=== PATIENT | female | born 1970 | race Caucasian/White ===

== ENCOUNTER 2016-04-04 14:51 | Emergency (ER) | payer OTHER ==
[~2016-04-04] VITALS: Ht 167.6 cm; Wt 87.0 kg
[~2016-04-04 14:51] MED LIST: MORP1CAP PO
[2016-04-04 14:54] VITALS: Ht 167.6 cm; Wt 87.0 kg
[2016-04-04] MEDS ORDERED: XYLOCAINE 1%/SOD BICARB 20 ML VIAL INFIL ONE (15:30)
--- NOTE | 2016-04-04 15:31 | EMERGENCY ROOM VISIT NOTE ---
ED Visit Note First contact with patient: 15:19 CHIEF COMPLAINT: Infection of the right buttock HISTORY OF PRESENT ILLNESS: This 45-year-old female patient presents to the emergency department ambulatory after they noticed a hard, red, tender area to the right buttock 3 days ago. It is slowly getting larger, more painful and tender. No fever, chills, or loss of appetite. There has been no drainage from the area. There was no injury to the area preceding the infection. They rate the pain as sharp and 9/10. Tetanus shot is up to date. They have tried opening the area without success. The patient is not diabetic. The patient has a history of subcutaneous abscesses, hidradenitis suppurativa. REVIEW OF SYSTEMS: A 6 system review of systems was completed with positives and pertinent negatives listed in the HPI. ALLERGIES: Prevacid, latex, penicillin, promethazine MEDICATIONS: See nursing notes PMH: Chronic back pain SOCIAL HISTORY: The patient is a smoker. She lives locally PHYSICAL EXAM: Vital Signs: Reviewed Nurse's notes, vital signs stable. GENERAL : This is a 45-year-old female, no acute distress, non toxic in appearance, well -developed well-nourished. SKIN: There is an erythematous indurated area to the buttock which measures about 3 cm in diameter. It is fluctuant but there is no pointing or drainage. There is a zone of inflammation around it but no lymphangitis. Capillary refill less than 2 seconds. MUSCULOSKELETAL: There is no limitation of the range of motion of the lower extremities. EMERGENCY DEPARTMENT COURSE: I examined the patient. After saline and Betadine cleansing and 4 mL of 1% buffered lidocaine anesthesia, the abscess was incised with a number 11 scalpel blade. A large amount of purulent material was released with more expressed by pressure. A swab was obtained for culture. The abscess cavity was further probed with a needle rolloff truck driver and the deep pocket expressed. The abscess cavity was then copiously irrigated with sterile saline under pressure. The area was then packed with bacitracin soaked packing. The area was cleaned with sterile saline and dressed with bacitracin and a bulky bandage. The patient tolerated the procedure well. The patient was discharged home in stable condition. DIAGNOSIS: Abscess of the buttock DISCHARGE INSTRUCTIONS & TREATMENT: Return in 48 hours for a wound recheck and packing removal. Remove the outer dressing if it becomes soiled or wet. Ibuprofen 600 mg every 6-8 hours for moderate pain. Continue your pain medication as prescribed, as needed. Bactrim and Keflex as prescribed, until finished. Return sooner with any worsening redness, swelling, fevers. Problem List Medical Problems: (1) Chronic low back pain Status: Chronic (2) Fecal impaction Status: Resolved (3) Fecal impaction Status: Resolved (4) Migraine Status: Chronic Surgical Problems: (1) H/O: hysterectomy Status: Resolved (2) Hx of cholecystectomy Status: Resolved (3) Hx of salpingo-oophorectomy, bilateral Status: Resolved (4) S/P lumbar fusion Status: Chronic Current/Historical Medications Scheduled Cephalexin Monohydrate (Keflex), 500 MG PO QID Docusate Sodium (Docqlace), 100 MG PO BID Duloxetine HCl (Duloxetine HCl), 60 MG PO HS Gabapentin (Gabapentin), 800 MG PO TID Morphine Sulfate (Morphine Sulfate Er), 30 MG PO TID Sulfa/Trimethoprim (Bactrim Ds 800MG/160MG), 1 TAB PO BID Zolpidem Tartrate (Zolpidem Tartrate), 10 MG PO HS Scheduled PRN Oxymorphone Hcl (Oxymorphone Hydrochloride), 10 MG PO DAILY PRN for Pain Allergies Coded Allergies: BEE STING (Unverified Allergy, Severe, ANAPHYLAXIS, 02/07/15) Lansoprazole (Verified Allergy, Severe, sob, 02/07/15) Latex (Verified Allergy, Severe, sob, 02/07/15) Promethazine (Verified Allergy, Unknown, Neuro symptoms, 02/07/15) Reported by PT Uncoded Allergies: PENICILLIN (Allergy, Severe, sob, 05/05/12) Vital Signs Date Time Temp Pulse Resp B/P Pulse Ox O2 Delivery O2 Flow Rate FiO2 04/04/16 16:19 36.9 93 16 137/83 97 04/04/16 14:54 36.9 93 16 137/83 97 Departure Information Impression Primary Impression: Abscess Dispostion Home / Self-Care Condition GOOD Prescriptions Cephalexin Monohydrate (Keflex) 500 Mg Cap 500 MG PO QID for 7 Days, #28 CAP Prov: Patricia Giordano PA-C 04/04/16 Sulfa/Trimethoprim (Bactrim Ds 800MG/160MG) Tab 1 TAB PO BID for 7 Days, #14 TAB Prov: Patricia Giordano PA-C 04/04/16 Referrals No Doctor, Assigned (PCP) Patient Instructions ED Abscess IandD, My [facility] Additional Instructions Return in 48 hours for a wound recheck and packing removal. Remove the outer dressing if it becomes soiled or wet. Ibuprofen 600 mg every 6-8 hours for moderate pain. Continue your pain medication as prescribed, as needed. Bactrim and Keflex as prescribed, until finished. Return sooner with any worsening redness, swelling, fevers.
[2016-04-04] MEDS ORDERED: SULF800T23 PO (16:09)
[2016-04-04] MEDS ORDERED: CEPH500C PO (16:09)
[2016-04-04 16:19] VITALS: BP 137/83; PULSE 93; TEMP 36.9; O2SAT 97
[2016-10-09] MEDS ORDERED: PRM625 PO (07:19)
[2016-10-09] MEDS ORDERED: LEVA45AE (07:19)
[2016-10-09] MEDS ORDERED: SALI0.653 (07:19)
[2016-10-09] MEDS ORDERED: FLVHFA110 INH (07:19)
[2016-10-09] MEDS ORDERED: LEVO1TAB35 PO (07:19)
== END 2016-04-04 16:21 | disposition home or self-care (01) ==
LOC: C.EDB 14:54 → C.EDD 16:21
DX: L02.31 Cutaneous abscess of buttock (principal); F17.200 Nicotine dependence, unspecified, uncomplicated; G89.29 Other chronic pain; M54.5 Low back pain; Z90.710 Acquired absence of both cervix and uterus

== ENCOUNTER 2016-04-07 12:35 | Emergency (ER) | payer OTHER ==
[~2016-04-07] VITALS: Ht 167.6 cm; Wt 84.6 kg
[~2016-04-07 12:35] MED LIST changes: +CEPH500C PO; -MORP1CAP PO; +SULF800T23 PO
[2016-04-07 12:53] VITALS: TEMP 36.9; Ht 167.6 cm; Wt 84.6 kg
--- NOTE | 2016-04-07 13:34 | EMERGENCY ROOM VISIT NOTE ---
ED Visit Note First contact with patient: 13:19 CHIEF COMPLAINT: Packing removal HISTORY OF PRESENT ILLNESS: This 45-year-old female patient presents to the emergency department ambulatory for packing removal of an abscess of her right buttock. She had incision and drainage 3 days ago. Previous care outlined has been followed without difficulty. The patient is taking both the Bactrim and Keflex as prescribed, but states that the Keflex is upsetting her stomach. REVIEW OF SYSTEMS: A 6 system review of systems was completed with positives and pertinent negatives listed in the HPI. ALLERGIES: Bee sting, lansoprazole, latex, penicillin, promethazine MEDICATIONS: See med list PMH: Unchanged from previous visit. PHYSICAL EXAM: Vital Signs reviewed, see Nurse's notes. Patient is afebrile, vital signs stable. GENERAL: This is a 45-year-old female, awake, alert, well appearing, no acute distress SKIN: Packing is in place in the right buttock. There is no continued purulent discharge. The redness has decreased. The wound is healing well. NEURO: No sensory or motor deficits noted. EMERGENCY DEPARTMENT COURSE AND DECISION MAKING: I examined the patient. The packing was removed from the abscess of the right buttock. The wound is healing well. There is a large pocket, and a small amount of packing was replaced in the abscess pocket to be removed by the patient or her at home in 2 days. I did review culture results, which showed coag negative Staphylococcus. The patient was instructed that she may discontinue the Keflex, but should continue the Bactrim for the entire course. Discharge instructions reviewed. Discharged in stable condition. DIAGNOSIS: Packing removal Problem List Medical Problems: (1) Chronic low back pain Status: Chronic (2) Fecal impaction Status: Resolved (3) Fecal impaction Status: Resolved (4) Migraine Status: Chronic Surgical Problems: (1) H/O: hysterectomy Status: Resolved (2) Hx of cholecystectomy Status: Resolved (3) Hx of salpingo-oophorectomy, bilateral Status: Resolved (4) S/P lumbar fusion Status: Chronic Current/Historical Medications Scheduled Cephalexin Monohydrate (Keflex), 500 MG PO QID Docusate Sodium (Docqlace), 100 MG PO BID Duloxetine HCl (Duloxetine HCl), 60 MG PO HS Gabapentin (Gabapentin), 800 MG PO TID Morphine Sulfate (Morphine Sulfate Er), 30 MG PO TID Sulfa/Trimethoprim (Bactrim Ds 800MG/160MG), 1 TAB PO BID Zolpidem Tartrate (Zolpidem Tartrate), 10 MG PO HS Scheduled PRN Oxymorphone Hcl (Oxymorphone Hydrochloride), 10 MG PO DAILY PRN for Pain Allergies Coded Allergies: BEE STING (Unverified Allergy, Severe, ANAPHYLAXIS, 04/07/16) Lansoprazole (Verified Allergy, Severe, sob, 04/07/16) Latex (Verified Allergy, Severe, sob, 04/07/16) Promethazine (Verified Allergy, Unknown, Neuro symptoms, 04/07/16) Reported by PT Uncoded Allergies: PENICILLIN (Allergy, Severe, sob, 05/05/12) Vital Signs Date Time Temp Pulse Resp B/P Pulse Ox O2 Delivery O2 Flow Rate FiO2 04/07/16 13:38 86 20 109/80 97 04/07/16 12:53 36.9 85 20 129/78 96 Room Air Departure Information Impression Primary Impression: Encounter for wound re-check Dispostion Home / Self-Care Condition GOOD Referrals No Doctor, Assigned (PCP) Patient Instructions My [facility] Additional Instructions Remove the remaining packing in 2 days. Continue the Bactrim. You may stop the Keflex. Continue to follow the discharge instructions given to you on your last visit. Return to the emergency department with any signs of worsening infection, fevers or any new/concerning symptoms.
[2016-04-07 13:38] VITALS: BP 109/80; PULSE 86; O2SAT 97
[2016-04-07] MEDS ORDERED: DOCU100C22 PO (14:21)
[2016-04-07] MEDS ORDERED: MORP1CAP96 PO (18:42)
[2016-04-07] MEDS ORDERED: ZOLP10TA6 PO (20:32)
[2016-04-07] MEDS ORDERED: NRN800 PO (20:32)
[2016-04-07] MEDS ORDERED: CYM60 PO (20:32)
[2016-04-07] MEDS ORDERED: OXYMTAB2 PO (20:32)
[2016-10-09] MEDS ORDERED: PRM625 PO (07:19)
[2016-10-09] MEDS ORDERED: SALI0.653 (07:19)
[2016-10-09] MEDS ORDERED: LEVA45AE (07:19)
[2016-10-09] MEDS ORDERED: FLVHFA110 INH (07:19)
[2016-10-09] MEDS ORDERED: LEVO1TAB35 PO (07:19)
== END 2016-04-07 13:51 | disposition home or self-care (01) ==
LOC: C.EDB 12:36 → C.EDD 13:51
DX: L02.31 Cutaneous abscess of buttock (principal); Z48.00 Encounter for change or removal of nonsurgical wound dressing; M54.5 Low back pain; G89.29 Other chronic pain; G43.909 Migraine, unspecified, not intractable, without status migrainosus; Z79.899 Other long term (current) drug therapy

== ENCOUNTER 2016-05-11 11:08 | Inpatient (IN) | payer OTHER ==
[~2016-05-11] VITALS: Ht 167.6 cm; Wt 88.3 kg
[~2016-05-11 11:08] MED LIST changes: -CEPH500C PO; +CYM60 PO; +DOCU100C22 PO; +MORP1CAP96 PO; +NRN800 PO; +OXYMTAB2 PO; -SULF800T23 PO; +ZOLP10TA6 PO
[2016-05-11] MEDS ORDERED: ALBUT/IPRATROP 3MG/0.5MG NEB 3 ML VIAL INH STA (11:46)
[2016-05-11 12:04] LABS: HEMATOCRIT 42.2 % (37-47); MEAN CELL VOLUME 87.4 fL (80-100); MEAN CORPUSCULAR HEMOGLOBIN 29.4 pg (25-34); MEAN CORPUSCULAR HGB CONC 33.6 g/dl (32-36); MEAN PLATELET VOLUME 10.6 fL (7.4-10.4); PLATELET COUNT 288 K/uL (130-400); RED BLOOD COUNT 4.83 M/uL (4.2-5.4); WHITE BLOOD COUNT 9.14 K/uL (4.8-10.8)
[2016-05-11 12:16] LABS: PARTIAL THROMBOPLASTIN RATIO 1.2; PROTHROMBIN TIME (PATIENT) 10.5 SECONDS (9.0-12.0)
[2016-05-11 12:21] LABS: BUN/CREATININE RATIO 7.1 (10-20); CALCIUM 8.7 mg/dl (8.5-10.1); CREATININE 0.72 mg/dl (0.60-1.20); POTASSIUM 3.8 mmol/L (3.5-5.1)
[2016-05-11 12:23] LABS: ALB/GLOB RATIO 0.9 (0.9-2)
[2016-05-11] MEDS ORDERED: METHYLPREDNISOLONE 125 MG VIAL IV STA (12:30)
[2016-05-11] MEDS ORDERED: SODIUM CHLORIDE 0.9% 1000ML 1,000 ML IV STA (12:30)
[2016-05-11] MEDS ORDERED: HYDROCODONE/HOMATROPINE SYRUP 5MG/1.5MG 5ML UDP PO STA (12:30)
--- NOTE | 2016-05-11 12:35 | DIAGNOSTIC IMAGING REPORT ---
CHEST ONE VIEW PORTABLE CLINICAL HISTORY: short of breath/cough dyspnea COMPARISON STUDY: 01/17/2016 FINDINGS: The bones soft tissues and hemidiaphragms are normal. The cardiomediastinal silhouette is normal. The lungs are clear. The pulmonary vasculature is normal. IMPRESSION: Negative chest. Electronically signed by: Ty Oleary M.D. 05/11/2016 12:34 PM Dictated Date/Time: 05/11/2016 12:33 PM
[2016-05-11 12:40] LABS: BASO % 0.2 %; BASO ABS # 0.02 K/uL (0-0.2); COMPLETE YES; EOS % 1.6 %; IG% 0.2 %; LYMPH % 22.1 %; LYMPH ABS # 2.02 K/uL (1.2-3.4); MONO % 5.3 %; NEUT % 70.6 %
[2016-05-11] MEDS ORDERED: DEXT30TA7 PO (12:42)
[2016-05-11] MEDS ORDERED: DiphenhydrAMINE HCL 50 MG/ML VIAL IV STA (13:08)
[2016-05-11] MEDS ORDERED: LEVAQUIN 750MG / 150ML D5W IV STA (14:19)
[2016-05-11 15:01] LABS: VEN BLD GAS O2 SATURATION 86.2 %; VEN BLOOD GAS BASE EXCESS 1.9 mmol/L
--- NOTE | 2016-05-11 16:36 | EMERGENCY ROOM VISIT NOTE ---
History Report prepared by Anrdés: Lilian Iqbal Under the Supervision of: Dr. Isidoro Griggs M.D. First contact with patient: 12:20 Chief Complaint: CHEST PAIN Stated Complaint: LT ARM/LEG NUMB, CP L SIDE, SOB, COUGH Nursing Triage Summary: pt c/o chest pain and left arm and leg numbness. sob. denies any n/v/ History of Present Illness The patient is a 45 year old female who presents to the Emergency Room with complaints of worsening chest pain with onset onset one day ago. The patient states that she has been having episodes of sharp chest pain. She feels that the pain shoots up into her neck and jaw and down into her left arm. The patient states that the left side of her body then goes completely numb. The patient states she feels completely exhausted after the episodes of chest pain. The patient has had a productive cough, chills, and a scratchy throat, which she states is due to coughing. She denies pain in her calves, getting a flu shot this year. The patient notes that she smokes. Source of History: patient Onset: one day ago Position: chest Quality: sharp, other (chest pain) Timing: worsening Associated Symptoms: + chills, + cough, + sorethroat Note: She denies pain in her calves. She feels that the pain shoots up into her neck and jaw and down into her left arm. The patient states that the left side of her body then goes completely numb. The patient states she feels completely exhausted after the episodes of chest pain. Review of Systems See HPI for pertinent positives & negatives. A total of 10 systems reviewed and were otherwise negative. Past Medical & Surgical Medical Problems: (1) Chronic low back pain (2) Fecal impaction (3) Fecal impaction (4) Migraine Surgical Problems: (1) H/O: hysterectomy (2) Hx of cholecystectomy (3) Hx of salpingo-oophorectomy, bilateral (4) S/P lumbar fusion Family History Cancer Diabetes mellitus Gallbladder disease Heart disease Hypertension Lung disease Social History Smoking Status: Current Every Day Smoker Marital Status: in relationship Housing Status: lives with family Occupation Status: unemployed Current/Historical Medications Scheduled Docusate Sodium (Docqlace), 100 MG PO BID Duloxetine HCl (Duloxetine HCl), 60 MG PO HS Gabapentin (Gabapentin), 800 MG PO TID Morphine Sulfate (Morphine Sulfate Er), 30 MG PO TID Zolpidem Tartrate (Zolpidem Tartrate), 10 MG PO HS Scheduled PRN Dextromethorphan-Guaifenesin (Mucinex Dm), 1 TAB PO Q12 PRN for Cough Oxymorphone Hcl (Oxymorphone Hydrochloride), 10 MG PO DAILY PRN for Pain Allergies Coded Allergies: BEE STING (Unverified Allergy, Severe, ANAPHYLAXIS, 04/07/16) Lansoprazole (Verified Allergy, Severe, sob, 04/07/16) Latex (Verified Allergy, Severe, sob, 05/11/16) CAUSES BLISTERS NOT SOB Penicillin G (Unverified Allergy, Severe, ANAPHYLAXIS, 05/11/16) Promethazine (Verified Allergy, Unknown, Neuro symptoms, 04/07/16) Reported by PT Physical Exam Vital Signs Date Time Temp Pulse Resp B/P Pulse Ox O2 Delivery O2 Flow Rate FiO2 05/11/16 17:00 68 20 125/79 93 Room Air 05/11/16 16:45 76 20 107/77 92 Nasal Cannula 2.0 05/11/16 16:30 74 20 113/78 92 Nasal Cannula 2.0 05/11/16 16:15 72 14 104/70 93 Nasal Cannula 2.0 05/11/16 16:00 76 20 111/80 92 Nasal Cannula 2.0 05/11/16 15:45 73 20 128/76 92 05/11/16 15:42 76 20 110/71 93 Nasal Cannula 2.0 05/11/16 14:39 74 14 117/67 94 Room Air 05/11/16 13:52 85 18 116/67 92 Nasal Cannula 2.0 05/11/16 13:16 Nasal Cannula 2.0 05/11/16 13:15 84 18 88 Room Air 05/11/16 12:54 92 18 110/78 91 Room Air 05/11/16 11:58 88 20 104/71 97 Room Air 05/11/16 11:55 93 Room Air 05/11/16 11:53 91 05/11/16 11:33 99 Room Air 05/11/16 11:20 37.4 99 18 134/78 93 Room Air Physical Exam GENERAL: Patient is ill appearing and in mild distress. HEENT: No acute trauma, normocephalic atraumatic, mucous membranes moist, no nasal congestion, no scleral icterus. NECK: No stridor, no adenopathy, no meningismus, trachea is midline. LUNGS: No dyspnea. Diffuse crackles throughout the left lobes and diffuse wheezing, junky productive cough. HEART: Regular rate and rhythm. No murmurs, rubs, gallops appreciated. ABDOMEN: Soft, nontender, bowel sounds positive, no masses appreciated, no peritonitis. BACK: No midline tenderness, no CVA tenderness EXTREMITIES: Normal motion all extremities, no cyanosis, no edema. NEUROLOGIC: Alert and oriented, no acute motor or sensory deficits, no focal weakness, cranial nerves grossly intact. SKIN: No rash, no jaundice, no diaphoresis. Medical Decision & Procedures ER Provider Diagnostic Interpretation: X ray results are stated below per my interpretation and the radiologist's interpretation. CT results as stated below per interpretation by me and the radiologist: CHEST ONE VIEW PORTABLE CLINICAL HISTORY: short of breath/cough dyspnea COMPARISON STUDY: 01/17/2016 FINDINGS: The bones soft tissues and hemidiaphragms are normal. The cardiomediastinal silhouette is normal. The lungs are clear. The pulmonary vasculature is normal. IMPRESSION: Negative chest. Electronically signed by: Ty Oleary M.D. 05/11/2016 12:34 PM Dictated Date/Time: 05/11/2016 12:33 PM CHEST CTA for PULMONARY ARTERIES CT DOSE: 403.65 mGy.cm HISTORY: Chest pain dyspnea TECHNIQUE: Multiaxial CT images of the chest were performed following the intravenous administration of contrast to evaluate the pulmonary arteries. Maximal intensity projection images were also obtained. COMPARISON STUDY: 01/17/2016 FINDINGS: Thoracic aorta is normal in course and caliber. Pulmonary arterial vasculature enhances appropriately. There are no significant filling defects. There are several mediastinal and/or hilar nodes which are unchanged from the prior exam. lung parenchyma shows no evidence for focal infiltrate. Micronodularity previously described is stable to slightly diminished. There is no focal infiltrate. IMPRESSION: 1. Study is negative for pulmonary embolus. 2. Lungs are considered clear. 3. Micronodularity previously described is stable to slightly diminished. 4. Several indeterminate hilar and mediastinal nodes unchanged from the prior exam. Electronically signed by: Ty Oleary M.D. 05/11/2016 6:05 PM Dictated Date/Time: 05/11/2016 6:01 PM Laboratory Results 05/11/16 11:40 Red Blood Count 4.83, Mean Corpuscular Volume 87.4, Mean Corpuscular Hemoglobin 29.4, Mean Corpuscular Hemoglobin Concent 33.6, Mean Platelet Volume 10.6, Neutrophils (%) (Auto) 70.6, Lymphocytes (%) (Auto) 22.1, Monocytes (%) (Auto) 5.3, Eosinophils (%) (Auto) 1.6, Basophils (%) (Auto) 0.2, Neutrophils # (Auto) 6.45, Lymphocytes # (Auto) 2.02, Monocytes # (Auto) 0.48, Eosinophils # (Auto) 0.15, Basophils # (Auto) 0.02 05/11/16 11:40 Test 05/11/16 11:37 05/11/16 11:40 05/11/16 11:51 05/11/16 14:50 Influenza Type A Antigen Neg for Influ A (NEG) Influenza Type B Antigen Neg for Influ B (NEG) White Blood Count 9.14 K/uL (4.8-10.8) Red Blood Count 4.83 M/uL (4.2-5.4) Hemoglobin 14.2 g/dL (12.0-16.0) Hematocrit 42.2 % (37-47) Mean Corpuscular Volume 87.4 fL (80-100) Mean Corpuscular Hemoglobin 29.4 pg (25-34) Mean Corpuscular Hemoglobin Concent 33.6 g/dl (32-36) Platelet Count 288 K/uL (130-400) Mean Platelet Volume 10.6 fL (7.4-10.4) Neutrophils (%) (Auto) 70.6 % Lymphocytes (%) (Auto) 22.1 % Monocytes (%) (Auto) 5.3 % Eosinophils (%) (Auto) 1.6 % Basophils (%) (Auto) 0.2 % Neutrophils # (Auto) 6.45 K/uL (1.4-6.5) Lymphocytes # (Auto) 2.02 K/uL (1.2-3.4) Monocytes # (Auto) 0.48 K/uL (0.11-0.59) Eosinophils # (Auto) 0.15 K/uL (0-0.5) Basophils # (Auto) 0.02 K/uL (0-0.2) RDW Standard Deviation 45.0 fL (36.4-46.3) RDW Coefficient of Variation 14.0 % (11.5-14.5) Immature Granulocyte % (Auto) 0.2 % Immature Granulocyte # (Auto) 0.02 K/uL (0.00-0.02) Red Blood Cell Morphology Unremarkable Prothrombin Time 10.5 SECONDS (9.0-12.0) Prothromb Time International Ratio 1.0 (0.9-1.1) Activated Partial Thromboplast Time 30.3 SECONDS (21.0-31.0) Partial Thromboplastin Ratio 1.2 Anion Gap 8.0 mmol/L (3-11) Est Creatinine Clear Calc Drug Dose 112.7 ml/min Estimated GFR () 118.9 Estimated GFR (Non- 102.6 BUN/Creatinine Ratio 7.1 (10-20) Calcium Level 8.7 mg/dl (8.5-10.1) Total Bilirubin 0.3 mg/dl (0.2-1) Aspartate Amino Transf (AST/SGOT) 24 U/L (15-37) Alanine Aminotransferase (ALT/SGPT) 44 U/L (12-78) Alkaline Phosphatase 97 U/L (45-117) Total Protein 7.5 gm/dl (6.4-8.2) Albumin 3.6 gm/dl (3.4-5.0) Globulin 3.9 gm/dl (2.5-4.0) Albumin/Globulin Ratio 0.9 (0.9-2) Bedside Troponin I 0.000 ng/ml (0-0.045) Venous Blood pH 7.39 (7.36-7.41) Venous Blood Partial Pressure CO2 47 mmHg (38.0-50.0) Venous Blood Partial Pressure O2 53 mmHg Venous Blood HCO3 28 mmol/L Venous Blood Oxygen Saturation 86.2 % Venous Blood Base Excess 1.9 mmol/L Test 05/11/16 14:53 05/11/16 15:24 Bedside Lactic Acid Venous 1.53 mmol/L (0.90-1.70) Bedside Glucose 117 mg/dl (70-90) Laboratory results as reviewed by me. Medications Administered Medications (Trade) Dose Ordered Sig/Zulma Route Start Time Stop Time Status Last Admin Dose Admin Albuterol/ Ipratropium (Duoneb) 3 ml NOW STAT INH 05/11/16 11:46 05/11/16 11:49 DC 05/11/16 11:53 3 ML Methylprednisolone Sodium Succinate 125 mg 125 mg NOW STAT IV 05/11/16 12:30 05/11/16 12:31 DC 05/11/16 12:49 125 MG Sodium Chloride (Nss 1000ml) 1,000 ml @ 999 mls/hr Q1H1M STAT IV 05/11/16 12:30 05/11/16 13:30 DC 05/11/16 12:48 999 MLS/HR Hydrocodone Bit/ Homatropine Methylb (Hycodan Syrup) 5 ml NOW STAT PO 05/11/16 12:30 05/11/16 12:31 DC 05/11/16 12:48 5 ML Diphenhydramine HCl (Benadryl Inj) 50 mg NOW STAT IV 05/11/16 13:08 05/11/16 13:09 DC 05/11/16 13:14 50 MG Levofloxacin (Levaquin / D5W) 750 mg NOW STAT IV 05/11/16 14:19 05/11/16 14:20 DC 05/11/16 15:53 750 MG ECG Indication: SOB/dyspnea, tachycardia Rate (beats per minute): 96 Rhythm: normal sinus Findings: no acute ischemic change, no ectopy Change: EKG2: Normal sinus rhythm, at a rate of 75, no ectopy, no acute ischemic changes. ED Course 1221: The patient was evaluated in room A12. A complete history and physical exam was performed. 1146: Duoneb 3 ml INH 1230: Hycodan Syrup 5 ml PO, Sodium Chloride 1000 ml @ 999 mls/hr IV, Solu- Medrol 125 mg IV 1308: Benadryl 50 mg IV 0110: I reevaluated the patient after she had an allergic reaction to the Hycodan, for this she was given Benadryl. 1339: I reevaluated the patient; she is hypoxic. 1419: Levaquin 750 mg IV 1520: I reevaluated the patient; she is acutely ill appearing, diaphoretic and hypoxic. She is having back pain where she usually has back pain. 1432: I discussed the case with Dr. Bernal ([facility]); he will further evaluate the patient and has requested that I order a CTA of the patient's chest. Medical Decision Differential: Infectious, Reactive Airway Disease, Pneumonia, Pneumothorax, COPD , CHF, ACS, Pulmonary Embolism, MSK, GI, Dissection, amongst other etiologies entertained. 45 yr old female smoker with chronic pain issues arrives with shortness of breath, cough, and chills. She looks unwell and lung sounds quite poor, especially LLL. Initially sats and vitals looked OK. No clear infiltrate and labs not very remarkable. Given nebs, steroids and hycodan for cough. Developed allergic reaction post hycodan requiring IV benadryl. Improved rash/ itching though quite somnolent with hypoxia (mild confusion initially on if hypoxic before or after). Monitored for quite some time and with hypoxia did get cultures, vbg, and lactic acid. Continued somnolence with increase in diaphoresis thus EKG done as well as bsg both looking OK. Even after prolonged monitoring still too somnolent to go home and thus I feel she will need to come in for further evaluation. Was given IV levaquin for infectious etiology. Not hypotensive, no lactic acidosis, blood gas looks OK. Discussed with medicine who request CT PE which fortunately was negative for acute findings. denies she took more of her pain meds. No neuro deficits nor head injury nor meningitis findings. Consults Time Called: 1430 Consulting Physician: Dr. Bernal ([facility]) Returned Call: 1432 I discussed the case with Dr. Bernal ([facility]); he will further evaluate the patient and has requested that I order a CTA of the patient 's chest. Impression Primary Impression: Hypoxia Additional Impressions: Bronchitis Somnolence Scribe Attestation The scribe's documentation has been prepared under my direction and personally reviewed by me in its entirety. I confirm that the note above accurately reflects all work, treatment, procedures, and medical decision making performed by me. Departure Information Dispostion Being Evaluated By Hospitalist Referrals No Doctor, Assigned (PCP) Patient Instructions My [facility] Problem Qualifiers
[2016-05-11] MEDS ORDERED: OPTIRAY 320 IV PRN (17:00)
[2016-05-11] MEDS ORDERED: OXYMORPHONE HCL 10 MG PO PRN (17:30)
[2016-05-11] MEDS ORDERED: ACETAMINOPHEN 325 MG TAB PO PRN (17:30)
[2016-05-11] MEDS ORDERED: ONDANSETRON INJ 2 MG/ML 2 ML VIAL IV PRN (17:30)
--- NOTE | 2016-05-11 17:41 | History and Physical ---
History & Physical Date & Time of Service: May 11, 2016 at 17:29 Chief Complaint: Lt Arm/Leg Numb, Cp L Side, Sob, Cough Primary Care Physician: No Doctor, Assigned History of Present Illness Source: patient Pt is a 45 yo female who presents to the ER with complaints of midsternal chest pain that started yesterday. Hx obtained from as pt is somnolent from benadryl given in ER. Per , pt has had shortness of breath and productive cough of yellow, green sputum for past 3 days. Noted fevers and chills as well. states she had chest pain on and off for past day as well with radiation down her left arm and into her jaw. Pt is 1 ppd smoker for 20 yrs. Pt has hx of SARAH and chronic pain from lifting injury at work in 2011 in which she obtains pain meds from her PCP in [place]. No cardiac hx noted. Past Medical/Surgical History Medical Problems: (1) Chronic low back pain Status: Chronic (2) Fecal impaction Status: Resolved (3) Fecal impaction Status: Resolved (4) Migraine Status: Chronic Surgical Problems: (1) H/O: hysterectomy Status: Resolved (2) Hx of cholecystectomy Status: Resolved (3) Hx of salpingo-oophorectomy, bilateral Status: Resolved (4) S/P lumbar fusion Status: Chronic Family History Cancer Diabetes mellitus Gallbladder disease Heart disease Hypertension Lung disease Social History Smoking Status: Current Every Day Smoker Smokeless Tobacco Use: No Alcohol Use: none Drug Use: none Marital Status: in relationship Occupational Status: unemployed Allergies Coded Allergies: BEE STING (Unverified Allergy, Severe, ANAPHYLAXIS, 04/07/16) Lansoprazole (Verified Allergy, Severe, sob, 04/07/16) Latex (Verified Allergy, Severe, sob, 05/11/16) CAUSES BLISTERS NOT SOB Penicillin G (Unverified Allergy, Severe, ANAPHYLAXIS, 05/11/16) Promethazine (Verified Allergy, Unknown, Neuro symptoms, 04/07/16) Reported by PT Uncoded Allergies: PENICILLIN (Allergy, Severe, sob, 05/05/12) Home Medications Scheduled Docusate Sodium (Docqlace), 100 MG PO BID Duloxetine HCl (Duloxetine HCl), 60 MG PO HS Gabapentin (Gabapentin), 800 MG PO TID Morphine Sulfate (Morphine Sulfate Er), 30 MG PO TID Zolpidem Tartrate (Zolpidem Tartrate), 10 MG PO HS Scheduled PRN Dextromethorphan-Guaifenesin (Mucinex Dm), 1 TAB PO Q12 PRN for Cough Oxymorphone Hcl (Oxymorphone Hydrochloride), 10 MG PO DAILY PRN for Pain Review of Systems Constitutional: + chills, + fatigue, + fever, + weakness Respiratory: + dyspnea at rest, + shortness of breath, No cough, No sputum, No wheezing Cardiovascular: + chest pain, No orthopnea Abdomen: No diarrhea, No nausea, No pain, No vomiting Musculoskeletal: No joint pain Genitourinary - Female: No dysuria, No urinary frequency, No urinary urgency Neurologic: + numbness/tingling, No paralysis, No weakness Endocrine: No excessive thirst, No fatigue Physical Exam Vital Signs Date Time Temp Pulse Resp B/P Pulse Ox O2 Delivery O2 Flow Rate FiO2 05/11/16 16:30 74 20 113/78 92 Nasal Cannula 2.0 05/11/16 16:15 72 14 104/70 93 Nasal Cannula 2.0 05/11/16 16:00 76 20 111/80 92 Nasal Cannula 2.0 05/11/16 15:45 73 20 128/76 92 05/11/16 15:42 76 20 110/71 93 Nasal Cannula 2.0 05/11/16 14:39 74 14 117/67 94 Room Air 05/11/16 13:52 85 18 116/67 92 Nasal Cannula 2.0 05/11/16 13:16 Nasal Cannula 2.0 05/11/16 13:15 84 18 88 Room Air 05/11/16 12:54 92 18 110/78 91 Room Air 05/11/16 11:58 88 20 104/71 97 Room Air 05/11/16 11:55 93 Room Air 05/11/16 11:53 91 05/11/16 11:33 99 Room Air 05/11/16 11:20 37.4 99 18 134/78 93 Room Air General Appearance: WD/WN, + mild distress Neck: supple, no adenopathy Respiratory/Chest: chest non-tender, + decreased breath sounds Cardiovascular: regular rate, rhythm, no gallop Abdomen/GI: non tender, soft Extremities/Musculoskelatal: normal inspection, no calf tenderness Neurologic/Psych: alert, oriented x 3 Diagnostics Laboratory Results Results Past 24 Hours Test 05/11/16 11:37 05/11/16 11:40 05/11/16 11:51 05/11/16 14:50 Range/Units Influenza Type A Antigen Neg for Influ A NEG Influenza Type B Antigen Neg for Influ B NEG White Blood Count 9.14 4.8-10.8 K/uL Red Blood Count 4.83 4.2-5.4 M/uL Hemoglobin 14.2 12.0-16.0 g/dL Hematocrit 42.2 37-47 % Mean Corpuscular Volume 87.4 80-100 fL Mean Corpuscular Hemoglobin 29.4 25-34 pg Mean Corpuscular Hemoglobin Concent 33.6 32-36 g/dl Platelet Count 288 130-400 K/uL Mean Platelet Volume 10.6 7.4-10.4 fL Neutrophils (%) (Auto) 70.6 % Lymphocytes (%) (Auto) 22.1 % Monocytes (%) (Auto) 5.3 % Eosinophils (%) (Auto) 1.6 % Basophils (%) (Auto) 0.2 % Neutrophils # (Auto) 6.45 1.4-6.5 K/uL Lymphocytes # (Auto) 2.02 1.2-3.4 K/uL Monocytes # (Auto) 0.48 0.11-0.59 K/uL Eosinophils # (Auto) 0.15 0-0.5 K/uL Basophils # (Auto) 0.02 0-0.2 K/uL RDW Standard Deviation 45.0 36.4-46.3 fL RDW Coefficient of Variation 14.0 11.5-14.5 % Immature Granulocyte % (Auto) 0.2 % Immature Granulocyte # (Auto) 0.02 0.00-0.02 K/uL Red Blood Cell Morphology Unremarkable Prothrombin Time 10.5 9.0-12.0 SECONDS Prothromb Time International Ratio 1.0 0.9-1.1 Activated Partial Thromboplast Time 30.3 21.0-31.0 SECONDS Partial Thromboplastin Ratio 1.2 Sodium Level 140 136-145 mmol/L Potassium Level 3.8 3.5-5.1 mmol/L Chloride Level 104 98-107 mmol/L Carbon Dioxide Level 28 21-32 mmol/L Anion Gap 8.0 3-11 mmol/L Blood Urea Nitrogen 5 7-18 mg/dl Creatinine 0.72 0.60-1.20 mg/dl Est Creatinine Clear Calc Drug Dose 112.7 ml/min Estimated GFR () 118.9 Estimated GFR (Non- 102.6 BUN/Creatinine Ratio 7.1 10-20 Random Glucose 141 70-99 mg/dl Calcium Level 8.7 8.5-10.1 mg/dl Total Bilirubin 0.3 0.2-1 mg/dl Aspartate Amino Transf (AST/SGOT) 24 15-37 U/L Alanine Aminotransferase (ALT/SGPT) 44 12-78 U/L Alkaline Phosphatase 97 45-117 U/L Total Protein 7.5 6.4-8.2 gm/dl Albumin 3.6 3.4-5.0 gm/dl Globulin 3.9 2.5-4.0 gm/dl Albumin/Globulin Ratio 0.9 0.9-2 Bedside Troponin I 0.000 0-0.045 ng/ml Venous Blood pH 7.39 7.36-7.41 Venous Blood Partial Pressure CO2 47 38.0-50.0 mmHg Venous Blood Partial Pressure O2 53 mmHg Venous Blood HCO3 28 mmol/L Venous Blood Oxygen Saturation 86.2 % Venous Blood Base Excess 1.9 mmol/L Test 05/11/16 14:53 05/11/16 15:24 Range/Units Bedside Lactic Acid Venous 1.53 0.90-1.70 mmol/L Bedside Glucose 117 70-90 mg/dl Microbiology Results 05/11/16 Blood Culture, Received Pending 05/11/16 Blood Culture, Received Pending Impression Assessment and Plan Pt is a 45 yo female with productive cough x 3 days and chest pain x 1 day Bronchitis vs developing pneumonia, will continue on levaquin 750 mg IV q 24 at this time. CXR did not note any consolidations. No leukocytosis or fevers noted. Will also utilize mucinex and duonebs as PRN. Obtain sputum c&s. Will also get CTA chest to rule out PE. Cont O2 protocol. D/Americo oxymorphone due to hypoxia, only scheduled morphine and gabapentin at this time for chronic back pain Chest pain likely pleuritic in nature, will get serial trops and EKG Chronic pain due to lower back injury at work, cont pain meds as above SARAH pt not on CPAP at home, pt reports no insurance Pt is FULL CODE VTE Prophylaxis VTE Risk Assessment Done? Y/N: Yes Risk Level: Moderate
--- NOTE | 2016-05-11 18:06 | DIAGNOSTIC IMAGING REPORT ---
CHEST CTA for PULMONARY ARTERIES CT DOSE: 403.65 mGy.cm HISTORY: Chest pain dyspnea TECHNIQUE: Multiaxial CT images of the chest were performed following the intravenous administration of contrast to evaluate the pulmonary arteries. Maximal intensity projection images were also obtained. COMPARISON STUDY: 01/17/2016 FINDINGS: Thoracic aorta is normal in course and caliber. Pulmonary arterial vasculature enhances appropriately. There are no significant filling defects. There are several mediastinal and/or hilar nodes which are unchanged from the prior exam. lung parenchyma shows no evidence for focal infiltrate. Micronodularity previously described is stable to slightly diminished. There is no focal infiltrate. IMPRESSION: 1. Study is negative for pulmonary embolus. 2. Lungs are considered clear. 3. Micronodularity previously described is stable to slightly diminished. 4. Several indeterminate hilar and mediastinal nodes unchanged from the prior exam. Electronically signed by: Ty Oleary M.D. 05/11/2016 6:05 PM Dictated Date/Time: 05/11/2016 6:01 PM
[2016-05-11 18:30] VITALS: BP 127/83; PULSE 72; TEMP 36.5; O2SAT 95; Ht 167.6 cm; Wt 88.3 kg
[2016-05-11] MEDS: GUAIFENESIN/DEXTROM SYRUP 100MG/10MG 5ML UDC PO PRN (20:15)
[2016-05-11] MEDS: ALBUT/IPRATROP 3MG/0.5MG NEB 3 ML VIAL INH SCH (20:18)
[2016-05-11 20:19] VITALS: PULSE 76; O2SAT 92
[2016-05-11] MEDS ORDERED: ZOLPIDEM TARTRATE 10 MG TAB PO SCH (21:00)
[2016-05-11] MEDS ORDERED: DULOXETINE HCL 60 MG CAP PO SCH (21:00)
[2016-05-11] MEDS: MoRPHine SULFATE CR 15 MG TAB (MS CONTIN) PO SCH (22:38)
[2016-05-11] MEDS: GABAPENTIN 800 MG TAB PO SCH (22:39)
[2016-05-11] MEDS: DOCUSATE SODIUM 100 MG CAP PO SCH (22:39)
[2016-05-11 23:11] VITALS: BP 134/82; PULSE 81; TEMP 36.6; O2SAT 90
[2016-05-12 01:44] LABS: BENZODIAZEPINE, URINE NEG (NEG); COCAINE,URINE NEG (NEG); PHENCYCLIDINE, URINE NEG (NEG)
[2016-05-12 04:09] VITALS: BP 122/74; PULSE 68; TEMP 36.3; O2SAT 94
[2016-05-12] MEDS ORDERED: IBUPROFEN 200 MG TAB PO STA (05:02)
[2016-05-12 06:43] LABS: BASO % 0.2 %; BASO ABS # 0.02 K/uL (0-0.2); COMPLETE YES; EOS % 0.1 %; HEMATOCRIT 42.4 % (37-47); IG% 0.4 %; LYMPH % 15.2 %; LYMPH ABS # 1.68 K/uL (1.2-3.4); MEAN CELL VOLUME 87.6 fL (80-100); MEAN CORPUSCULAR HEMOGLOBIN 29.8 pg (25-34); MEAN PLATELET VOLUME 10.3 fL (7.4-10.4); MONO % 7.2 %; NEUT % 76.9 %; PLATELET COUNT 323 K/uL (130-400); RED BLOOD COUNT 4.84 M/uL (4.2-5.4); WHITE BLOOD COUNT 11.08 K/uL (4.8-10.8)
[2016-05-12 07:11] VITALS: BP 120/75; PULSE 67; TEMP 36.5; O2SAT 95
[2016-05-12 07:13] LABS: BLOOD UREA NITROGEN 8 mg/dl (7-18); BUN/CREATININE RATIO 10.8 (10-20); CALCIUM 9.3 mg/dl (8.5-10.1); CARBON DIOXIDE 25 mmol/L (21-32); CHLORIDE 106 mmol/L (98-107); CREATININE 0.74 mg/dl (0.60-1.20); GLUCOSE 212 mg/dl (70-99); POTASSIUM 4.3 mmol/L (3.5-5.1); SODIUM 142 mmol/L (136-145)
[2016-05-12 07:34] VITALS: PULSE 71; O2SAT 94
[2016-05-12] MEDS: ALBUT/IPRATROP 3MG/0.5MG NEB 3 ML VIAL INH SCH ×3 (07:34→15:23)
[2016-05-12] MEDS: GABAPENTIN 800 MG TAB PO SCH ×2 (07:59→14:26)
[2016-05-12] MEDS: MoRPHine SULFATE CR 15 MG TAB (MS CONTIN) PO SCH ×2 (08:00→12:15)
[2016-05-12] MEDS: GUAIFENESIN/DEXTROM SYRUP 100MG/10MG 5ML UDC PO PRN (08:00)
[2016-05-12] MEDS: DOCUSATE SODIUM 100 MG CAP PO SCH ×2 (09:00→10:23)
[2016-05-12] MEDS ORDERED: ENOXAPARIN 40 MG/0.4 ML SYR SQ SCH (10:00)
[2016-05-12] MEDS ORDERED: NICOTINE POLACRILEX 2 MG GUM MT PRN (10:15)
[2016-05-12 10:43] LABS: ESTIMATED AVERAGE GLUCOSE 134 mg/dl; HA1C FLAG Normal (Normal)
[2016-05-12 11:16] VITALS: PULSE 74; O2SAT 94
[2016-05-12 11:28] VITALS: BP_SYST 102; BP_SYST 115; BP_DIAS 68; BP_DIAS 72; PULSE 81; TEMP 36.6; O2SAT 96
[2016-05-12] MEDS ORDERED: LORAZEPAM 0.5 MG TAB PO STA (11:45)
[2016-05-12] MEDS ORDERED: ALBU0.633 NEB (15:22)
[2016-05-12] MEDS ORDERED: LEVO-366 PO (15:22)
[2016-05-12] MEDS ORDERED: LORA-741 PO (15:22)
--- NOTE | 2016-05-12 15:32 | Discharge Instructions ---
Discharge Instructions Date of Service May 12, 2016. Admission Reason for Admission: Bronchitis; Hypoxia Discharge Discharge Diagnosis / Problem: bronchitis Discharge Goals Goal(s): Improve function Activity Recommendations Activity Limitations: resume your previous activity . Instructions / Follow-Up Instructions / Follow-Up Youhave been treated in the hospital for acute bronchitis. The following changes/additions have been made to your medication list: -Albuterol nebulizer treatments every 6 hours for the next 7 days -Lorazepam 0.5 mg 1 tab by mouth every 12 hours as needed for anxiety or shakiness -Levaquin 750 mg 1 tab by mouth. Please finish the entire course of antibiotics. I did not give you a prescription for the inhaled steroid because it was very expensive. Please follow-up with the pulmonary doctor as scheduled. They may be able to give you a free sample of inhalers. Please also follow up with her primary care physician within one week Return to the emergency department if you have any of the following symptoms: -Fever of 103F or greater -Persistent vomiting - Persistent diarrhea -Lethargy -Chest pain -Worsening Shortness of breath Current Hospital Diet Patient's current hospital diet: Regular Diet Discharge Diet Recommended Diet: Regular Diet Procedures Procedures Performed: CT chest 1. Study is negative for pulmonary embolus. 2. Lungs are considered clear. 3. Micronodularity previously described is stable to slightly diminished. 4. Several indeterminate hilar and mediastinal nodes unchanged from the prior exam. Pending Studies Studies pending at discharge: no Laboratory Results Hemoglobin A1c Test 05/12/16 06:28 Range/Units Estimated Average Glucose 134 mg/dl Hemoglobin A1c 6.3 H 4.5-5.6 % Medical Emergencies . Who to Call and When: Medical Emergencies: If at any time you feel your situation is an emergency, please call 911 immediately. . Non-Emergent Contact Non-Emergency issues call your: Primary Care Provider . . "Provider Documentation" section prepared by Lenore Sanchez. VTE Core Measure Inpt VTE Proph given/why not?: Enoxaparin (Lovenox)AMERICO, T.EJacinto. Kathryn, SCD's
--- NOTE | 2016-05-12 15:42 | Discharge Summary ---
Discharge Summary Date of Service May 12, 2016. (Lenore Sanchez PA-C) Discharge Summary Admission Date: May 11, 2016 at 17:19 Discharge Date: May 12, 2016 Discharge Disposition: Home Principal Diagnosis: acute bronchitis, hypoxia, chest pain Problems/Secondary Diagnoses: (1) Chronic low back pain Status: Chronic (2) Migraine Status: Chronic Tobacco use (3) S/P lumbar fusion Status: Chronic Procedures: CT chest 1. Study is negative for pulmonary embolus. 2. Lungs are considered clear. 3. Micronodularity previously described is stable to slightly diminished. 4. Several indeterminate hilar and mediastinal nodes unchanged from the prior exam. (Lenore Sanchez PA-C) Medication Reconciliation New Medications: Albuterol Sulfate (Albuterol Sulfate) 0.63 Mg/3 Ml Neb 1 VIAL NEB QID for 30 Days, #150 ML 1 Refill Levofloxacin (Levaquin) 500 Mg Tab 750 MG PO DAILY for 6 Days Lorazepam (Ativan) 0.5 Mg Tab 1 TAB PO Q12 PRN for Anxiety/Agitation for 14 Days, #28 Continued Medications: Dextromethorphan-Guaifenesin (Mucinex Dm) 1 Tab Tab 1 TAB PO Q12 PRN for Cough for 10 Days, #20 TAB Docusate Sodium (Docqlace) 100 Mg Cap 100 MG PO BID Duloxetine HCl (Duloxetine HCl) 60 Mg Cap 60 MG PO HS Gabapentin (Gabapentin) 800 Mg Tab 800 MG PO TID Morphine Sulfate (Morphine Sulfate Er) 30 Mg Cap 30 MG PO TID Oxymorphone Hcl (Oxymorphone Hydrochloride) 10 Mg Tab 10 MG PO DAILY PRN for Pain Zolpidem Tartrate (Zolpidem Tartrate) 10 Mg Tab 10 MG PO HS Referrals At Discharge Follow up Referrals: [employer] Referral - Within 1 Week with Ashutosh Chatterjee MD Discharge Exam Patient's breathing is about the same. Chest pain has improved. Cough nonproductive. No fever or chills. No nausea or vomiting. Review of Systems: Constitutional: No fever Respiratory: + cough (nonproductive) Cardiovascular: No chest pain Abdomen: No nausea Neurologic: No weakness Physical Exam: General Appearance: no apparent distress, + pertinent finding (depressed affect noted) Eyes: EOMI Neck: no JVD Respiratory/Chest: + pertinent finding (coarse breath sounds throughout) Cardiovascular: regular rate, rhythm Abdomen / GI: normal bowel sounds, non tender, soft Extremities: no calf tenderness, no pedal edema Neurologic/Psychiatric: no motor/sensory deficits, oriented x 3, + pertinent finding (depressed affect. Patient also appears anxious.) Skin: warm/dry (Lenore Sanchez PA-C) Hospital Course This patient is a 45-year-old female that presented to the emergency department with a nonproductive cough and altered mental status thought to be secondary to taking Hycodan and then getting Benadryl in the emergency department. Chest x- ray negative for pneumonia. Nonproductive cough, hypoxia likely secondary to acute bronchitis-no further hypoxia documented. Saturating 98% on room air. -Begin Levaquin 750 mg. Treat for a total of 7 days -Treated with DuoNeb's. This did make the patient somewhat anxious and shaky. Due to the fact that she does not have insurance, I try to give her affordable prescriptions. She was given a prescription for albuterol per nebulizer, which she has at home -I want to send the patient home with an inhaled corticosteroid; unfortunately, these were all over $400 for a one-month supply -The patient was given follow-up with pulmonary -Encourage smoking cessation Chest pain-likely pleuritic -Patient was observed on telemetry -Cardiac enzymes remain negative -No EKG changes noted Metabolic encephalopathy secondary to polypharmacy. Patient received Benadryl, Hycodan on top of her typical narcotic regimen -This is resolved Chronic back pain -Patient will continue her outpatient regimen -The patient's oxymorphone was held due to her altered mental status Anxiety -Albuterol made her anxiety much worse -She was given a short course of lorazepam 0.5 mg 1 by mouth twice a day as needed for anxiety or shaking DVT prophylaxis -Lovenox 40 mg subQ daily -TEDS, SCDs CODE STATUS -LEVEL I FULL CODE Total Time Spent: Greater than 30 minutes This includes examination of the patient, discharge planning, medication reconciliation, and communication with other providers. (Lenore Sanchez PA-C) [facility] Physician Supervision Note: I interviewed and examined the patient. Discussed with Lenore Sanchez PAC and agree with findings and plan as documented in the note. Any exceptions or clarifications are listed here: None Pt states feels some breathless ness but not sure if not anxiety from being here or albuterol, has no hypoxia, significant other at bedside and I discussed the possibility that this maybe copd from tobacco abuse, councelled about stopping, pt is in agreement to follow up with pulmonary med to consider pft's vitals noted no hypoxia lung exam with no wheeze or focal loss, maybe some air trapping discharge with treatment for bronchitis and follow up with pulmonary medicine Documented By: Ashutosh Del Rosario (Ashutosh Del Rosario M.D.) Discharge Instructions Please refer to the electronic Patient Visit Report (Discharge Instructions) for additional information. (Lenore Sanchez PA-C) Follow-Up Pulmonary 1-2 weeks Primary care physician within one week (Lenore Sanchez PA-C) Additional Copies To Ashutosh Chatterjee MD
[2016-05-12 15:47] VITALS: BP 104/63; PULSE 84; TEMP 36.7; O2SAT 98
[2016-05-12] MEDS ORDERED: LEVOFLOXACIN / D5W 750 MG in PREMIXED IN D5W 150 ML IV SCH (16:00)
[2016-05-14 11:52] LABS: COD UR NEGATIVE NG/ML (CUTOFF=50); HYDROCOD UR 230 NG/ML (CUTOFF=50); HYDROMOR UR 102 NG/ML (CUTOFF=50); LEGIONELLA ANTIGEN NOT DETECTED; MORPHINE UR 15000 NG/ML (CUTOFF=50); NORHYDROCODONE CONF UR 282 NG/ML (CUTOFF=50); OXYMORPH UR NEGATIVE NG/ML (CUTOFF=50)
[2016-10-09] MEDS ORDERED: LEVA45AE (07:19)
[2016-10-09] MEDS ORDERED: PRM625 PO (07:19)
[2016-10-09] MEDS ORDERED: FLVHFA110 INH (07:19)
[2016-10-09] MEDS ORDERED: LEVO1TAB35 PO (07:19)
[2016-10-09] MEDS ORDERED: SALI0.653 (07:19)
== END 2016-05-12 16:10 | disposition home or self-care (01) | DRG 202 ==
LOC: ENRESERVDT → ENRESERVTM → C.EDB 11:14 → C.2T 17:19
PROVIDERS: ADMIT Hospitalist; ATTEND Internal Medicine
DX: J20.9 Acute bronchitis, unspecified (principal); G93.41 Metabolic encephalopathy; R07.1 Chest pain on breathing; R09.02 Hypoxemia; G89.29 Other chronic pain; M54.5 Low back pain; G47.33 Obstructive sleep apnea (adult) (pediatric); G43.909 Migraine, unspecified, not intractable, without status migrainosus; F17.210 Nicotine dependence, cigarettes, uncomplicated; F41.9 Anxiety disorder, unspecified; R40.0 Somnolence; Z98.1 Arthrodesis status; Z79.899 Other long term (current) drug therapy; Z79.891 Long term (current) use of opiate analgesic; T45.0X5A Adverse effect of antiallergic and antiemetic drugs, initial encounter; T40.2X5A Adverse effect of other opioids, initial encounter; T40.605A Adverse effect of unspecified narcotics, initial encounter; Y92.230 Patient room in hospital as the place of occurrence of the external cause

== ENCOUNTER 2016-06-04 20:22 | Emergency (ER) | payer OTHER ==
[~2016-06-04] VITALS: Ht 167.6 cm; Wt 89.0 kg
[~2016-06-04 20:22] MED LIST changes: +ALBU0.633 NEB; +DEXT30TA7 PO
[2016-06-04 20:34] VITALS: TEMP 36.5; Ht 167.6 cm; Wt 89.0 kg
[2016-06-04] MEDS ORDERED: VNTHFA/IN INH (21:22)
[2016-06-04] MEDS ORDERED: ATV5X PO (21:22)
[2016-06-04] MEDS ORDERED: VALA1TAB31 PO (21:22)
[2016-06-04] MEDS ORDERED: SODIUM CHLORIDE 0.9% 1000ML 1,000 ML IV STA (21:49)
[2016-06-04] MEDS ORDERED: OPTIRAY 320 IV PRN (22:00)
[2016-06-04 22:25] LABS: HEMATOCRIT 43.3 % (37-47); MEAN CELL VOLUME 87.8 fL (80-100); MEAN CORPUSCULAR HEMOGLOBIN 30.4 pg (25-34); MEAN CORPUSCULAR HGB CONC 34.6 g/dl (32-36); MEAN PLATELET VOLUME 10.4 fL (7.4-10.4); PLATELET COUNT 317 K/uL (130-400); RED BLOOD COUNT 4.93 M/uL (4.2-5.4); WHITE BLOOD COUNT 9.27 K/uL (4.8-10.8)
[2016-06-04 22:36] LABS: ISTAT CREATININE 0.5 mg/dl (0.6-1.3); ISTAT HEMOGLOBIN 15.3 g/dl (12.0-16.0); ISTAT IONIZED CALCIUM 1.21 mmol/l (1.12-1.32)
[2016-06-04 22:42] LABS: URINE APPEARANCE CLEAR (CLEAR); URINE BILIRUBIN NEG (NEG); URINE COLOR YELLOW; URINE NITRITE NEG (NEG); URINE PH 5.5 (4.5-7.5); URINE SPECIFIC GRAVITY 1.014 (1.000-1.030); UROBILINOGEN NEG (NEG); ZZUR CULT IF INDIC CLEAN CATCH NO
--- NOTE | 2016-06-04 22:45 | DIAGNOSTIC IMAGING REPORT ---
ABDOMEN AND PELVIS CT WITH IV CONTRAST CT DOSE: 671.70 mGy.cm HISTORY: Pain RLQ abd pain TECHNIQUE: Multiaxial CT images of the abdomen and pelvis were performed following the use of intravenous contrast. COMPARISON STUDY: None. FINDINGS: Lung bases are clear. Liver spleen and pancreas are unremarkable. Prior cholecystectomy. Kidneys enhance uniformly. There is no evidence for hydronephrosis. Bowel pattern is considered nonobstructive. Visualized components of the appendix are unremarkable. Bowel pattern within the pelvis is unremarkable. Bladder is midline. There is no significant abdominal pelvic or inguinal adenopathy. There is stable postoperative changes consistent with posterior laminectomy and fusion of the low lumbosacral spine. IMPRESSION: No significant abnormality identified within the abdomen or pelvis. Electronically signed by: Ty Oleary M.D. 06/04/2016 10:42 PM Dictated Date/Time: 06/04/2016 10:41 PM
[2016-06-04 22:46] LABS: MANUAL MICROSCOPIC REQUIRED? NO; REVIEW REQ? NO
[2016-06-04 22:47] LABS: BUN/CREATININE RATIO 11.3 (10-20); CREATININE 0.6 mg/dl (0.60-1.20); POTASSIUM 3.4 mmol/L (3.5-5.1)
[2016-06-04 22:48] LABS: CALCIUM 9.4 mg/dl (8.5-10.1); COMPLETE YES; EOSINOPHIL % 10.4 %; LYMPH ABS # 2.58 K/uL (1.2-3.4); LYMPHOCYTE % 27.8 %; NEUTROPHILS % 42.6 %; VARIANT LYMPHOCYTE % 18.3 %
--- NOTE | 2016-06-04 23:18 | EMERGENCY ROOM VISIT NOTE ---
History First contact with patient: 21:34 Chief Complaint: ABDOMINAL PAIN Stated Complaint: SEVERE ABDOMINAL PAIN, RLQ IS WORSE THEN LLQ Nursing Triage Summary: pt c/o lower abd pain, sharper on right. associated nausea, frequent BMs. Started yesterday, worsening. referred by PCP History of Present Illness The patient is a 45 year old female who presents to the Emergency Department by private vehicle for evaluation of RIGHT lower quadrant abdominal pain. She reports that she has had pain for the past few days. She's had increasing pain which prompted her visit to the emergency department. The patient reports a prior history of cholecystectomy. She reports no other prior abdominal surgeries. She has used her narcotic pain medications for chronic back pain which has provided minimal relief of symptoms. She denies any change in bowel or bladder habits. She rates her current discomfort as an 8/10. The patient denies any fevers, chills, chest pain, palpitations, short of breath, hematochezia, melena, hematuria, or dysuria. Review of Systems A complete 10-point Review of Systems was discussed with the patient, with pertinent positives and negatives listed in the History of Present Illness. All remaining Review of Systems questions can be considered negative unless otherwise specified. Past Medical/Surgical History Medical Problems: (1) Chronic low back pain (2) Fecal impaction (3) Fecal impaction (4) Migraine Surgical Problems: (1) H/O: hysterectomy (2) Hx of cholecystectomy (3) Hx of salpingo-oophorectomy, bilateral (4) S/P lumbar fusion Family History Cancer Diabetes mellitus Gallbladder disease Heart disease Hypertension Lung disease Social History Smoking Status: Current Every Day Smoker Smokeless Tobacco Use: No Drug Use: none Marital Status: in relationship Housing Status: lives with family Occupation Status: unemployed Current/Historical Medications Scheduled Albuterol Sulfate (Albuterol Sulfate), 1 VIAL NEB QID Docusate Sodium (Docqlace), 100 MG PO BID Duloxetine HCl (Duloxetine HCl), 60 MG PO HS Gabapentin (Gabapentin), 800 MG PO TID Lorazepam (Lorazepam), 0.5 MG PO TID Morphine Sulfate (Morphine Sulfate Er), 30 MG PO TID Valacyclovir Hcl (Valtrex), 1 GM PO BID Zolpidem Tartrate (Zolpidem Tartrate), 10 MG PO HS Scheduled PRN Albuterol Hfa (Ventolin Hfa), 2 PUFFS INH Q6 PRN for SOB/Wheezing Dextromethorphan-Guaifenesin (Mucinex Dm), 1 TAB PO Q12 PRN for Cough Oxymorphone Hcl (Oxymorphone Hydrochloride), 10 MG PO DAILY PRN for Pain Allergies Coded Allergies: BEE STING (Unverified Allergy, Severe, ANAPHYLAXIS, 06/04/16) Lansoprazole (Verified Allergy, Severe, sob, 06/04/16) Latex (Verified Allergy, Severe, sob, 06/04/16) CAUSES BLISTERS NOT SOB Penicillin G (Unverified Allergy, Severe, ANAPHYLAXIS, 06/04/16) Promethazine (Verified Allergy, Unknown, Neuro symptoms, 06/04/16) Reported by PT Physical Exam Vital Signs Date Time Temp Pulse Resp B/P Pulse Ox O2 Delivery O2 Flow Rate FiO2 06/04/16 23:20 67 14 98/58 98 Room Air 06/04/16 20:34 36.5 81 18 142/86 95 Room Air Pain Rating (0-10): 8 Physical Exam VITAL SIGNS - Vital signs and nursing notes were reviewed. GENERAL - 45-year-old female appearing her stated age who is in no acute distress. Sleeping on initial evaluation. Wakes for conversation. Communicates well with provider and answers questions appropriately. LUNGS - Chest wall symmetric without accessory muscle use, intercostals retractions, or central cyanosis. Normal vesicular breath sounds CTA B/L. No wheezes, rales, or rhonchi appreciated. CARDIAC - RRR with S1/S2. No murmur, rubs, or gallops appreciated. ABDOMEN - Abdominal contour obese and without pulsations or visible masses. BS normoactive all four quadrants. Subjective tenderness to palpation appreciated in the RIGHT Lower quadrant. No guarding. No Rebound Tenderness. Negative Rovsing's. Negative Moore's. No palpable masses, hepatosplenomegaly, or ascites noted. PSYCH - A&Ox3 and cooperates fully with examiner. Pt is very pleasant and interacts well with examiner. Medical Decision & Procedures ER Provider Diagnostic Interpretation: Radiological imaging and reports were reviewed by myself. Radiologist's Interpretation as follows: ABDOMEN AND PELVIS CT WITH IV CONTRAST CT DOSE: 671.70 mGy.cm HISTORY: Pain RLQ abd pain TECHNIQUE: Multiaxial CT images of the abdomen and pelvis were performed following the use of intravenous contrast. COMPARISON STUDY: None. FINDINGS: Lung bases are clear. Liver spleen and pancreas are unremarkable. Prior cholecystectomy. Kidneys enhance uniformly. There is no evidence for hydronephrosis. Bowel pattern is considered nonobstructive. Visualized components of the appendix are unremarkable. Bowel pattern within the pelvis is unremarkable. Bladder is midline. There is no significant abdominal pelvic or inguinal adenopathy. There is stable postoperative changes consistent with posterior laminectomy and fusion of the low lumbosacral spine. IMPRESSION: No significant abnormality identified within the abdomen or pelvis. Laboratory Results 06/04/16 22:10 Red Blood Count 4.93, Mean Corpuscular Volume 87.8, Mean Corpuscular Hemoglobin 30.4, Mean Corpuscular Hemoglobin Concent 34.6, Mean Platelet Volume 10.4 06/04/16 22:10 Test 06/04/16 22:10 06/04/16 22:22 White Blood Count 9.27 K/uL (4.8-10.8) Red Blood Count 4.93 M/uL (4.2-5.4) Hemoglobin 15.0 g/dL (12.0-16.0) Hematocrit 43.3 % (37-47) Mean Corpuscular Volume 87.8 fL (80-100) Mean Corpuscular Hemoglobin 30.4 pg (25-34) Mean Corpuscular Hemoglobin Concent 34.6 g/dl (32-36) Platelet Count 317 K/uL (130-400) Mean Platelet Volume 10.4 fL (7.4-10.4) RDW Standard Deviation 45.6 fL (36.4-46.3) RDW Coefficient of Variation 14.2 % (11.5-14.5) Neutrophils % (Manual) 42.6 % Lymphocytes % (Manual) 27.8 % Variant Lymphocytes % (manual) 18.3 % Monocytes % (Manual) 0.9 % Eosinophils % (Manual) 10.4 % Neutrophils # (Manual) 3.95 K/uL (1.4-6.5) Total Absolute Neutrophils 3.95 K/uL (1.4-6.5) Lymphocytes # (Manual) 2.58 K/uL (1.2-3.4) Absolute Variant Lymphocytes 1.70 K/uL Total Absolute Lymphocytes 4.27 K/uL (1.2-3.4) Monocytes # (Manual) 0.08 K/uL (0.11-0.59) Eosinophils # (Manual) 0.96 K/uL (0-0.5) Urine Color YELLOW Urine Appearance CLEAR (CLEAR) Urine pH 5.5 (4.5-7.5) Urine Specific [place] 1.014 (1.000-1.030) Urine Protein NEG (NEG) Urine Glucose (UA) NEG (NEG) Urine Ketones NEG (NEG) Urine Occult Blood NEG (NEG) Urine Nitrite NEG (NEG) Urine Bilirubin NEG (NEG) Urine Urobilinogen NEG (NEG) Urine Leukocyte Esterase NEG (NEG) Urine Test NEG (NEG) Est Creatinine Clear Calc Drug Dose 135.8 ml/min Estimated GFR () 129.4 Estimated GFR (Non- 111.6 BUN/Creatinine Ratio 11.3 (10-20) Calcium Level 9.4 mg/dl (8.5-10.1) Total Bilirubin 0.3 mg/dl (0.2-1) Aspartate Amino Transf (AST/SGOT) 27 U/L (15-37) Alanine Aminotransferase (ALT/SGPT) 33 U/L (12-78) Alkaline Phosphatase 95 U/L (45-117) Total Protein 7.5 gm/dl (6.4-8.2) Albumin 3.8 gm/dl (3.4-5.0) Globulin 3.7 gm/dl (2.5-4.0) Albumin/Globulin Ratio 1.0 (0.9-2) Lipase 103 U/L (73-393) Bedside Hemoglobin 15.3 g/dl (12.0-16.0) Bedside Hematocrit 45 % (37-47) Bedside Sodium 142 mEq/L (135-144) Bedside Potassium 3.5 mEq/L (3.3-5.0) Bedside Chloride 99 mEq/L (101-112) Bedside Total CO2 29 mEq/l (24-31) Anion Gap 18.0 mmol/L (16-25) Bedside Blood Urea Nitrogen 5 mg/dl (7-18) Bedside Creatinine 0.5 mg/dl (0.6-1.3) Bedside Glucose (other) 108 mg/dl (70-99) Bedside Ionized Calcium (Tye) 1.21 mmol/l (1.12-1.32) Medications Administered Medications (Trade) Dose Ordered Sig/Zulma Route Start Time Stop Time Status Last Admin Dose Admin Sodium Chloride (Nss 1000ml) 1,000 ml @ 250 mls/hr Q4H STAT IV 06/04/16 21:49 06/04/16 23:54 DC 06/04/16 22:27 250 MLS/HR ED Course Patient was seen and evaluated by myself. Labs were drawn, saline lock in place. Previous emergency room visit notes were reviewed. The patient was hydrated with normal saline and a rate of [address] the abdomen and pelvis with IV contrast only was ordered. Laboratory results demonstrate no acute leukocytosis, worrisome anemia, or bandemia. The patient has no significant electrolyte abnormalities. Urinalysis demonstrated no acute findings consistent with infection. CT results above. Laboratory results and imaging studies were reviewed with the patient who acknowledges understanding. The patient will follow-up with her primary care provider tomorrow for repeat abdominal exam. She will return for any changing or worsening symptoms. Patient discharged home in good condition. Medical Decision Given the patient's presentation and stated complaint, I did elect to perform the above-mentioned workup. The patient presents today with pain in the RIGHT lower quadrant. The patient is essentially sleeping on initial valuation. She wakes to have a conversation. I spent the patient has taken her narcotic medications and she reports that she is here after her bedtime. She reports contacted her primary care provider who initially. Center to the emergency Department for further evaluation and management. She has no fever. She has no leukocytosis. Her abdomen is soft. She has subjective tenderness to palpation. CT demonstrated no acute findings. She'll follow-up with her primary care provider in 24 hours for repeat abdominal exam. She will return for any changing or worsening symptoms. Patient discharged home in good condition. In the evaluation and treatment of this patient, the following differential diagnoses were considered: Appendicitis, Diverticulitis, Diverticulosis, Colitis , Ischemic Colitis, Inflammatory Bowel Disease, Irritable Bowel Disease, Ovarian Torsion, Kidney Stone, Pyelonephritis, Hydronephrosis, Cholecystitis, Ascending Cholangitis, Choledocholithiasis, GERD. Impression Primary Impression: Abdominal pain Departure Information Dispostion Home / Self-Care Condition GOOD Referrals Fito Mchugh (PCP) Patient Instructions Abdominal Pain - [facility], [facility] Additional Instructions You have been treated in the Emergency Department your Abdominal Pain. Laboratory results and imaging studies have ruled out any emergent causes for your abdominal pain which would warrant admission or surgery. For pain control, you can use the following qxlo-nvi-nrlumpo medicines (if >12 yo): - Regular strength (325mg/tab) Tylenol (acetaminophen) 2 tabs every 4-6 hours as needed. Do not exceed 12 tablets in a 24 hour period. Avoid taking more than 4 grams (4000 mg) of Tylenol per day. This includes any other sources of acetaminophen you may take on a regular basis. - Regular strength (200 mg/tab) Advil (ibuprofen) 1-2 tabs every 4-6 hours as needed. Do not exceed a dose of 3200 mg per day. Drink plenty of water and stay well hydrated. As with any trip to the Emergency Department, you should follow-up with your Primary Care Provider from today's visit. Return to the emergency department if your symptoms persist despite treatment plan outlined above or if the following symptoms occur: increased fevers, chills , worsening nausea/vomiting, blood in your stool or urine. Problem Qualifiers Primary Impression: Abdominal pain Abdominal location: right lower quadrant Qualified Codes: R10.31 - Right lower quadrant pain
[2016-06-04 23:20] VITALS: BP 98/58; PULSE 67; O2SAT 98
[2016-10-09] MEDS ORDERED: FLVHFA110 INH (07:19)
[2016-10-09] MEDS ORDERED: LEVA45AE (07:19)
[2016-10-09] MEDS ORDERED: LEVO1TAB35 PO (07:19)
[2016-10-09] MEDS ORDERED: PRM625 PO (07:19)
[2016-10-09] MEDS ORDERED: SALI0.653 (07:19)
== END 2016-06-04 23:30 | disposition home or self-care (01) ==
LOC: C.EDB 20:23 → C.EDA 23:30
DX: R10.31 Right lower quadrant pain (principal); M54.5 Low back pain; G89.29 Other chronic pain; G43.909 Migraine, unspecified, not intractable, without status migrainosus; Z80.9 Family history of malignant neoplasm, unspecified; Z83.3 Family history of diabetes mellitus; Z83.79 Family history of other diseases of the digestive system; Z82.49 Family history of ischemic heart disease and other diseases of the circulatory system; Z83.6 Family history of other diseases of the respiratory system; F17.210 Nicotine dependence, cigarettes, uncomplicated; Z79.899 Other long term (current) drug therapy

== ENCOUNTER → 2016-06-25 | Outpatient (CLI) | payer OTHER ==
[~2016-06-25] MED LIST changes: +ATV5X PO; +FLVHFA110 INH; +LEVA45AE; +LEVO1TAB35 PO; +PRM625 PO; +SALI0.653; +VALA1TAB31 PO; +VNTHFA/IN INH
--- NOTE | 2016-06-26 11:53 | PULMONARY FUNCTION TEST ---
INTERPRETATION BASED ON ATS CRITERIA: SPIROMETRY: Suggestive of mild obstructive ventilatory disease. LUNG VOLUMES: Hyperinflated with a residual volume of 386%. DIFFUSION CAPACITY: Moderately decreased with DLCO 52%. INTERPRETATION: These patterns are suggestive of emphysematous change and reduced with a DLCO of 52% and decreased DLCO to VA ratio at 78%. INTERPRETATION: Suggestive of mild to moderate obstructive ventilatory disease/decreased DLCO diffusion capacity.
== END | disposition home or self-care (01) ==
LOC: C.RC 12:23
PROVIDERS: ATTEND Internal Medicine Critical Care Medicine
DX: J40 Bronchitis, not specified as acute or chronic (principal); R06.09 Other forms of dyspnea; R05 Cough

== ENCOUNTER → 2016-07-04 | Outpatient (CLI) | payer OTHER ==
--- NOTE | 2016-07-04 09:07 | DIAGNOSTIC IMAGING REPORT ---
CHEST 2 VIEWS ROUTINE CLINICAL HISTORY: J40 [id number] Chronic [id number] COMPARISON STUDY: 05/11/2016 FINDINGS: The bones soft tissues and hemidiaphragms are normal. The cardiomediastinal silhouette is normal. The lungs are clear. The pulmonary vasculature is normal. IMPRESSION: Negative chest. Electronically signed by: Ty Oleary M.D. 07/04/2016 9:06 AM Dictated Date/Time: 07/04/2016 9:05 AM
[2016-07-07 13:31] LABS: BORDETELLA PERTUSSIS SOURCE Nasal Swab
== END | disposition home or self-care (01) ==
LOC: C.RAD 08:38
PROVIDERS: ATTEND Internal Medicine Critical Care Medicine
DX: J40 Bronchitis, not specified as acute or chronic (principal)

== ENCOUNTER → 2016-07-08 | Outpatient (CLI) | payer OTHER ==
--- NOTE | 2016-07-08 14:31 | DIAGNOSTIC IMAGING REPORT ---
CT SCAN OF THE CHEST WITHOUT IV CONTRAST CLINICAL HISTORY: Chronic cough. Abnormal pulmonary function studies. COMPARISON STUDY: Chest CT scans dated 05/11/2016 end 01/17/2016. TECHNIQUE: CT scan of the thorax was performed from the thoracic inlet to the upper abdomen. Images are reviewed in the axial, sagittal, and coronal planes. IV contrast was not administered for this examination as per the front clinician. The Examination is degraded by metallic streak artifact from a necklace. CT DOSE: 395.23 mGy.cm FINDINGS: Thyroid: Imaged portions of the thyroid gland are normal in size and attenuation. Thoracic aorta: The thoracic aorta is normal in caliber and demonstrates standard 3-vessel arch anatomy. Heart: The heart is normal in size and there is trace pericardial effusion. The pulmonary trunk appears mildly dilated measuring 3.2 cm in transverse diameter. This suggests pulmonary artery hypertension. Lungs and pleural spaces: There are emphysematous changes in the upper lobes. Scattered groundglass opacities are present in the upper lobes bilaterally, right greater than left. This has improved from 05/11/2016. No lobar consolidation or pleural effusion is identified. The trachea and central airways are clear. A 3 mm nodule at the left lung base seen on image #213 is unchanged. Mediastinum: There are numerous subcentimeter mediastinal lymph nodes. These are not pathologically enlarged by size criteria. Helen: Not well assessed without IV contrast. Axillae: There is no axillary lymphadenopathy. Upper abdomen: Cholecystectomy clips are identified. The spleen is mildly enlarged measuring 14.2 cm in length there is a tiny hiatal hernia. Skeletal structures: No lytic or blastic bony lesions are seen. IMPRESSION: 1. Mild emphysema. 2. There is no lobar consolidation or pleural effusion. 3. There are scattered groundglass opacities present in the upper lobes, right greater than left. These have improved from 05/11/2016 and likely represent a mild and possibly chronic infectious/inflammatory pneumonitis. RB-ILD could also potentially have this appearance. Clinical correlation will be required. 4. Numerous subcentimeter mediastinal lymph nodes are not pathologically enlarged by size criteria. 5. Mild splenomegaly. Electronically signed by: Gustavo Booker M.D. 07/08/2016 2:29 PM Dictated Date/Time: 07/08/2016 2:20 PM
--- NOTE | 2016-07-08 16:20 | ECHOCARDIOGRAM REPORT ---
*NOTICE TO RECEIVING [employer] This information is strictly Confidential and protected under [place] law. [place] law prohibits you from making any further disclosure of this information unless further disclosure is expressly permitted by the written consent of the person to whom it pertains or is authorized by law. A general authorization for the release of medical or other information is not sufficient for this purpose. Hospital accepts no responsibility if the information is made available to any other person, INCLUDING THE PATIENT. Interpretation Summary * Name: LISSY GRAVES Study Date: 07/08/2016 01:12 PM BP: 110/70 mmHg * Patient Location: [facility] HR: 85 * : 1970 (M/d/yyyy) Gender: Female Height: 66 in * Age: 45 yrs Ethnicity: CA Weight: 192 lb * Ordering Physician: Ashutosh Chatterjee * Referring Physician: Ashutosh Chatterjee * Performed By: Lilian Yeung * * Reason For Study: CHRONIC COUGH, SOB, CHEST PAIN * BSA: 2.0 m2 * -- Conclusions -- * 1. Normal LV size and borderline concentric LVH. * 2. Normal LV systolic function. LVEF 65-70%. No regional wall motion abnormalities. * 3. Normal RV size and function. * 4. No significant valvular pathology. * 5. Normal estimated RA and PA pressures. * 6. No prior studies for comparison. Procedure Details * A complete two-dimensional transthoracic echocardiogram was performed (2D, M-mode, Doppler and color flow Doppler). Left Ventricle * The left ventricle is grossly normal size. * There is borderline concentric left ventricular hypertrophy. * Ejection Fraction = 65-70%. * No regional wall motion abnormalities noted. Right Ventricle * The right ventricle is grossly normal size. * The right ventricular systolic function is normal as assessed by tricuspid annular plane systolic excursion (TAPSE) (normal >1.5 cm). Atria * The left atrial size is normal. * Right atrial size is normal. * No ASD detected; PFO is not assessed. Mitral Valve * The mitral valve is grossly normal. * There is no mitral valve stenosis. * There is trace mitral regurgitation. Tricuspid Valve * The tricuspid valve is not well visualized, but is grossly normal. * There is no tricuspid stenosis. * Significant tricuspid regurgitation is absent. * There is trace tricuspid regurgitation. Aortic Valve * The aortic valve opens well. * The aortic valve is trileaflet. * No hemodynamically significant valvular aortic stenosis. * There is no significant aortic regurgitation. Pulmonic Valve * The pulmonary valve is inadequately visualized, but the Doppler data is adequate for interpretation. * There is no pulmonic valvular stenosis. * Trace pulmonic valvular regurgitation. Great Vessels * The aortic root and proximal ascending aorta are normal sized. * No Doppler or imaging evidence of an aortic coarctation. Pericardium/Pleural * There is no pericardial effusion. Great Vessels * Normal inferior vena cava size and collapsability with sniff indicates a normal right atrial pressure of 3 mmHg MMode 2D Measurements and Calculations IVSd 0.92 cm IVSs 1.4 cm LVIDd 4.3 cm LVIDs 2.3 cm LVPWd 1.2 cm LVPWs 1.5 cm IVS/LVPW 0.79 FS 45.8 % EDV(Teich) 82.3 ml ESV(Teich) 18.6 ml EF(Teich) 77.5 % EDV(cubed) 78.6 ml ESV(cubed) 12.5 ml EF(cubed) 84.1 % % IVS thick 48.2 % % LVPW thick 26.2 % LV mass(C)d 150.2 grams LV mass(C)dI 76.4 grams/m\S\2 LV mass(C)s 104.3 grams LV mass(C)sI 53.1 grams/m\S\2 CO(Teich) 4.6 l/min CI(Teich) 2.3 l/min/m\S\2 SV(Teich) 63.8 ml SI(Teich) 32.5 ml/m\S\2 CO(cubed) 4.8 l/min CI(cubed) 2.4 l/min/m\S\2 SV(cubed) 66.1 ml SI(cubed) 33.6 ml/m\S\2 ACS 10 cm LA dimension 3.5 cm asc Aorta Diam 2.8 cm LVOT diam 1.7 cm LVOT area 2.2 cm\S\2 LVAd ap4 26.4 cm\S\2 LVLd ap4 8.0 cm EDV(MOD-sp4) 71.7 ml LVAs ap4 13.0 cm\S\2 LVLs ap4 5.7 cm ESV(MOD-sp4) 24.9 ml EF(MOD-sp4) 65.3 % LVAd ap2 29.5 cm\S\2 LVLd ap2 7.9 cm EDV(MOD-sp2) 91.1 ml LVAs ap2 15.0 cm\S\2 LVLs ap2 6.1 cm ESV(MOD-sp2) 31.7 ml EF(MOD-sp2) 65.2 % CO(MOD-sp4) 3.4 l/min CI(MOD-sp4) 1.7 l/min/m\S\2 SV(MOD-sp4) 46.8 ml SI(MOD-sp4) 23.8 ml/m\S\2 CO(MOD-sp2) 4.3 l/min CI(MOD-sp2) 2.2 l/min/m\S\2 SV(MOD-sp2) 59.4 ml SI(MOD-sp2) 30.2 ml/m\S\2 Doppler Measurements and Calculations MV E max chastity 103.8 cm/sec MV A max chastity 77.1 cm/sec MV E/A 1.3 MV dec time 0.25 sec Ao V2 max 144.2 cm/sec Ao max PG 8.3 mmHg Ao max PG (full) 1.3 mmHg DALE(V,A) 2.0 cm\S\2 DALE(V,D) 2.0 cm\S\2 LV V1 max PG 7.1 mmHg LV V1 max 132.9 cm/sec PA V2 max 72.8 cm/sec PA max PG 2.1 mmHg PI end-d chastity 135.7 cm/sec
== END | disposition home or self-care (01) ==
LOC: C.CPL 13:03
PROVIDERS: ATTEND Internal Medicine Critical Care Medicine
DX: R06.09 Other forms of dyspnea (principal); R05 Cough; R94.2 Abnormal results of pulmonary function studies

== ENCOUNTER → 2016-07-14 | Outpatient (CLI) | payer OTHER ==
--- NOTE | 2016-07-14 08:46 | DIAGNOSTIC IMAGING REPORT ---
NUCLEAR MEDICINE VENTILATION/PERFUSION SCAN CLINICAL HISTORY: Dyspnea on exertion. Abnormal pulmonary function test. Cough. COMPARISON: Chest CT May 11, 2016 and July 08, 2016. TECHNIQUE: For the ventilation portion of this exam, 34 mCi of DTPA was inhaled at 8:00 AM on July 14, 2016. Immediately following inhalation, imaging of the chest was carried out in the anterior, posterior, left lateral, right lateral, LPO, RPO, [place] and [place] projections. For the perfusion portion of exam, 5.3 mCi of technetium 99m MAA was injected IV at 8:25 AM on July 14, 2016. Immediately following injection, imaging of the chest was carried out in the same projections. FINDINGS: There is symmetric diminished ventilation to both upper lobes. No mismatched defects are identified on this examination. This study is low probability for pulmonary embolus. IMPRESSION: 1. Low probability for pulmonary embolus. 2. Symmetric diminished ventilation to both upper lobes. Electronically signed by: Steven Quintanilla M.D. 07/14/2016 8:44 AM Dictated Date/Time: 07/14/2016 8:41 AM
--- NOTE | 2016-07-14 08:59 | DIAGNOSTIC IMAGING REPORT ---
CHEST 2 VIEWS ROUTINE CLINICAL HISTORY: Chronic cough. Dyspnea on exertion. COMPARISON STUDY: Chest CT July 08, 2016 and chest radiograph July 04, 2016. FINDINGS: Lung volumes are normal. There is no pneumothorax or pleural effusion. There is no consolidation to suggest pneumonia. Cardiomediastinal silhouette is normal. Pulmonary vascularity is normal. IMPRESSION: No acute cardiopulmonary findings. Electronically signed by: Steven Quintanilla M.D. 07/14/2016 8:58 AM Dictated Date/Time: 07/14/2016 8:57 AM
== END | disposition home or self-care (01) ==
LOC: C.NUCL 07:45
PROVIDERS: ATTEND Internal Medicine Critical Care Medicine
DX: R06.09 Other forms of dyspnea (principal); R05 Cough

== ENCOUNTER → 2016-10-06 | Outpatient (CLI) | payer OTHER ==
[2016-10-06 17:33] LABS: HEMATOCRIT 45.9 % (37-47); MEAN CELL VOLUME 90.4 fL (80-100); MEAN CORPUSCULAR HEMOGLOBIN 29.3 pg (25-34); MEAN CORPUSCULAR HGB CONC 32.5 g/dl (32-36); MEAN PLATELET VOLUME 10.4 fL (7.4-10.4); PLATELET COUNT 307 K/uL (130-400); RED BLOOD COUNT 5.08 M/uL (4.2-5.4); WHITE BLOOD COUNT 9.65 K/uL (4.8-10.8)
[2016-10-06 18:11] LABS: BLOOD UREA NITROGEN 7 mg/dl (7-18); BUN/CREATININE RATIO 10.3 (10-20); CALCIUM 8.9 mg/dl (8.5-10.1); CARBON DIOXIDE 29 mmol/L (21-32); CHLORIDE 104 mmol/L (98-107); CREATININE 0.64 mg/dl (0.60-1.20); GLUCOSE 98 mg/dl (70-99); POTASSIUM 4.1 mmol/L (3.5-5.1); SODIUM 138 mmol/L (136-145)
== END | disposition home or self-care (01) ==
LOC: C.LAB1850 17:09
PROVIDERS: ATTEND Internal Medicine Interventional Cardiology
DX: Z01.818 Encounter for other preprocedural examination (principal); J43.9 Emphysema, unspecified

== ENCOUNTER → 2016-10-09 | Day surgery (SDC) | payer OTHER ==
[~2016-10-09] VITALS: Ht 167.6 cm; Wt 88.6 kg
[~2016-10-09] MED LIST changes: +FENTANYL CITRATE INJ 50 MCG/1 ML 2 ML VIAL ONE; +MIDAZOLAM HCL 1 MG/ML 2ML VIAL ONE
[2016-10-09 07:18] VITALS: BP 131/81; PULSE 72; TEMP 36.8; O2SAT 95; Ht 167.6 cm; Wt 88.6 kg
--- NOTE | 2016-10-09 09:06 | Procedure Note ---
Pre-Mod Sedation Assessment General Date of Moderate Sedation: Oct 09, 2016. Vital Signs: Vital Signs Past 12 Hours Date Time Temp Pulse Resp B/P (MAP) Pulse Ox O2 Delivery O2 Flow Rate FiO2 10/09/16 07:18 36.8 72 16 131/81 95 Room Air Review Cardiovascular: regular rate, rhythm, no edema Abdomen: normal bowel sounds, non tender Lungs: chest non-tender, lungs clear Pre-Sedation Airway Assessment Oral Cavity: WNL Able to Visualize Vocal Cords: No Short Thick Neck: No Hx of Sleep Apnea: Yes Smoking Status: Current Every Day Smoker Mallampati Classification: Class III ASA Classification: Class II Procedure Planning Contraindications-for Mod Sed: None Yes Notes The planned sedation has been discussed with the patient and consent obtained. I have identified the patient, determined the appropriateness of sedation and have assessed the patient immediately prior to the procedure. All medicine(s) and interventions are by my order.
--- NOTE | 2016-10-09 09:06 | History & Physical Bridge Note ---
H&P Re-Evaluation Bridge Note: I have examined the patient, reviewed the History & Physical and in the interval since the performance of the History & Physical I have noted the following changes of clinical significance: No changes noted
--- NOTE | 2016-10-09 09:07 | Procedure Note ---
Post-Mod Sedation Assessment General Date of Moderate Sedation Oct 09, 2016. Vital Signs: Vital Signs Past 12 Hours Date Time Temp Pulse Resp B/P (MAP) Pulse Ox O2 Delivery O2 Flow Rate FiO2 10/09/16 07:18 36.8 72 16 131/81 95 Room Air Review - Discharge Criteria Vital Signs Stable: Yes Alert/Oriented/Conversant: Yes Returned to Baseline Mental St: Yes Nausea Absent/Minimal: Yes Pain/Discomfort/Absent/Minimal: Yes Normal/Baseline Respirations: Yes Active Bleeding?: No Pt Received D/C Instructions: N/A Prescriptions Given: None Specific Proced. D/C Criteria Distal Pulses Present (Cardiac: Yes Groin site assessed-Card Cath: N/A Voided Prior To Discharge: N/A Discharged Patients Adult Escort/Transportation: Yes
--- NOTE | 2016-10-09 09:23 | Cardiac Catheterization ---
Procedure Note Procedure Date Oct 09, 2016. Pre-Procedure Diagnosis CHF AUC Score RHC Post-Procedure Diagnosis Elevated Intracardiac Pressures Procedure(s) Performed Right Heart Cath, Ultrasound Guided Vascular Access Napper Runner Miguel Angel Open Cut Examiner(s) Therese Estimated Blood Loss 5 Medication(s) Fentanyl, Versed, Lidocaine 1% Summary of Findings Indication: Dyspnea on exertion; Evaluate for pulmonary hypertension Access: 7Fr ultrasound guided access in right jugular vein. Attempted to pass from antecubital vein but unsuccessful. Catheters: 7Fr latex swan Findings: RA 6 RV 38/9 PA 35/14/25 PCW 11 PaSat 62% AoSat 93% Ministerio CO/CI 3.9/2 Thermo CO/CI 5.2/2.6 TPG 14 Thermo PVR 2.7 wood Ministerio PVR 3.6 wood Summary: 1. Preserved cardiac ouput with normal left sided filling pressures. 2. Mild pulmonary arterial hypertension (MPA 25 mmHg, TPG 14 mmHg, PVR ~3 wood) 3. Mildly elevated right sided filling pressures. Recommendations: Follow-up with Dr. Chatterjee for further management. Hemodynamics Rest Ao: -- Final Ao: -- LV: -- Recommendations Medical therapy and/or Counseling Specimens None Radiation Exposure (mGy) 1092 Contrast (mls) None Fluids (cc crystalloids) 94 NSS Drains None Anesthesia Moderate Procedural Complication(s) None Disposition Dispute Specialist Holding/Recovery ACC Data Cardiac Status Clinical evaluation leading to the procedure CAD Presntation: Sx unlikely to be ischemic Anginal Classification: CCS II Heart Failure: Yes, NYHA Class: CCS II Cardiogenic Shock w/in 24Hrs: No Cardiac Arrest w/in 24Hrs: No Imaging studies past 6 months: Yes Stress studies past 6 months: No Standard Exercise Stress Test: No Stress Echocardiogram: No Stress Testing w/SPECT MPI: No
--- NOTE | 2016-10-09 09:27 | Discharge Instructions ---
Discharge Instructions Procedure Procedure Date: Oct 09, 2016. Reason for Visit: Abnormal Pft *Dr Michelle To Do*. Discharge Discharge Date: Oct 09, 2016. Discharge Diagnosis: Mild pulmonary hypertension Last Recorded Wt (Kilograms): 88.6 Anesthesia Post Anesthesia Instructions: If you have had IV Sedation: * Do not drive today. * Resume driving when sas administrator permits. * Do not make important decisions or sign legal documents today. * Call surgeon for: 1. Temperature elevations greater than 101 degrees F. 2. Uncontrollable pain. 3. Excessive bleeding. 4. Persistent nausea and vomiting. 5. Medication intolerance (nausea, vomiting or rash). * For nausea and vomiting use only clear liquids such as: tea, soda, bouillon until nausea subsides, then gradually increase diet as tolerated. * If you have any concerns or questions, call your surgeon's office. If physician is unavailable and it is an emergency, call 911 or go to the nearest emergency room. Instructions Activity Recommendations: resume regular activity Recommended Home Diet: resume previous diet Allergies: Coded Allergies: BEE STING (Unverified Allergy, Severe, ANAPHYLAXIS, 06/04/16) Lansoprazole (Verified Allergy, Severe, sob, 06/04/16) Latex (Verified Allergy, Severe, sob, 06/04/16) CAUSES BLISTERS NOT SOB Penicillin G (Unverified Allergy, Severe, ANAPHYLAXIS, 06/04/16) Promethazine (Verified Allergy, Unknown, Neuro symptoms, 06/04/16) Reported by PT Follow Up Follow-up with: Dr. Chatterjee [facility] Recommendations: Call your doctor if: * Temperature above 101 degrees * Pain not relieved by pain medicine ordered * There is increased drainage or redness from any incision * You have any unanswered questions or concerns. Your Doctors Instructions noted above were prepared by provider James Michelle. Patient Signature Section: Patient Instructions Signature Page Lenore Polk Patient (or Guardian) Signature/Date: I have read and understand the instructions given to me by my caregivers. Caregiver/RN/Doctor Signature/Date: The above-named patient and/or guardian has received patient instructions on this date. + Original Patient Signature Page (only) stays with chart. Please make copy for patient.
[2016-10-09 09:45] VITALS: BP 129/79; PULSE 73; O2SAT 98
[2016-10-09 11:44] LABS: ISTAT CARBON DIOXIDE VENOUS 27 mEq/l (24-31); ISTAT VENOUS BLOOD GAS HCO3 26 meq/L (23-28); ISTAT VENOUS BLOOD GAS PCO2 46 mmHg (38.0-50.0); ISTAT VENOUS BLOOD GAS PO2 34 mmHg (30-55); ISTAT VENOUS BLOOD GAS pH 7.36 (7.36-7.41)
== END | disposition home or self-care (01) ==
LOC: C.CATH 06:59
PROVIDERS: ATTEND Internal Medicine Interventional Cardiology
DX: R94.2 Abnormal results of pulmonary function studies (principal); G47.31 Primary central sleep apnea; R06.09 Other forms of dyspnea; G47.33 Obstructive sleep apnea (adult) (pediatric); J43.9 Emphysema, unspecified; Z90.49 Acquired absence of other specified parts of digestive tract; Z98.1 Arthrodesis status; Z90.710 Acquired absence of both cervix and uterus; Z82.49 Family history of ischemic heart disease and other diseases of the circulatory system; Z83.3 Family history of diabetes mellitus; Z83.6 Family history of other diseases of the respiratory system; F17.200 Nicotine dependence, unspecified, uncomplicated; I27.0 Primary pulmonary hypertension

== ENCOUNTER → 2016-10-14 | Outpatient (CLI) | payer OTHER ==
[~2016-10-14] MED LIST changes: -ALBU0.633 NEB; -DEXT30TA7 PO; -FENTANYL CITRATE INJ 50 MCG/1 ML 2 ML VIAL ONE; -MIDAZOLAM HCL 1 MG/ML 2ML VIAL ONE; -VALA1TAB31 PO
--- NOTE | 2016-10-15 05:58 | PAP/PSG TECHNICIAN REPORT ---
[facility] Metalsmith Polysomnogram Report Study name: None Report date: 10/15/2016 Study date: 10/14/2016 Referring Physician: Ashutosh Chatterjee M.D. Name: LISSY GRAVES Interpreting Physician: Aureliano Pena M.D. Date of : 1970 Metalsmith: NAVI Lundberg. Sex: Female Age: 45 StudyType: PSG Weight: 203 lbs Height: 45 years, Height 5' 6" BMI: 32.76 Medications: LEVOFLOXACIN 750 MG, LEVALBUTEROL HCL, FLUTICASONE PROPIONATE 50 MCG/ACT, ALBUTEROL SULFATE, DOCUSATE SODIUM 100 MG, DULOXETINE HCL 60 MG, FLOVENT HFA 110 MCG/ACT, GABAPENTIN 800 MG, LORAZEPAM 0.5 MG, MORPHINE SULFATE ER 30 MG, OXYMORPHONE HCL 10 MG, PREMARIN 0.625 MG, VENTOLIN HFA 108 (90) BASE, ZOLPIDEM TARTRATE 10 MG Patient History PATIENT HAD A SLEEP STUDY DONE MANY YEARS AGO AND WAS TOLD SHE HAD MILD SARAH. SHE SAID THAT SHE NEVER STARTED TREATMENT. SHE CURRENTLY HAS COPD, HYPOVENTILATION AND EXCESSIVE DAYTIME SLEEPINESS. SHE IS HERE TODAY FOR AN EVALUATION FOR SARAH. ESS = 13 RM 6 Parameters Monitored NPSG: E1-M2, E2-M1, Fp1-M2, Fp2-M1, F3-M2, F4-M2, F4-M1, C3-M2, C4-M2, C4-M1, O1-M2, O2-M2, O2-M1, T3-M2, T4-M1, P3-M2, P4-M1, CHIN1, CHIN2, HR, EKG, Legs, PFLOW, SNOR, FLOW, CFLOW, Tidal Volume, THOR, ABDO, SpO2, PLTH, CPRESS, ETCO2 Wave, ETCO2, pH Sleep Architecture Sleep Stages Time at Lights Off 10:46:29 PM STAGES Time (min.) TST (%) Time at Lights On 5:34:29 AM Wake 142.5 -- Total Recording Time (TRT) 408.50 min. N1 4.0 2 Total Sleep Period (TSP) 268.5 min. N2 39.0 15 Total Sleep Time (TST) 265.5min. N3 158.0 60 Awake Time 143.0 min. REM 64.5 24 Wake after Sleep Onset 97.5 min. Sleep Efficiency (SE) 65 % Sleep Onset Latency (JEAN-CLAUDE) 45.0 min. Number of Stage 1 Shifts None Awakenings 4 Stage Changes 15 Number of REM periods 1 REM 64.5 24 REM Latency 125.0 min. NREM 201.0 76 Body Position Analysis Supine Right Left Side Prone Vertical Total Sleep Time (min.) 86.3 0.0 265.5 265.50 0.0 0.0 Total Sleep Time (%) 0% 0% 100% 100 0% N/A% Total Sleep Time REM (min.) 0.0 0.0 64.5 None 0.0 0.0 Total Sleep Time NREM (min.) 0.0 0.0 201.0 None 0.0 0.0 Intermittent Wake (min.) 86.3 40.2 16.0 None 0.0 0.0 Total Sleep Period (%) 0% None None None None None Arousals Myoclonus (PLM) * Events Count Index Events Count Index Spontaneous 9 2 Events Awake (PLMW) 42 17.7 Respiratory 0 0.0 Events Asleep w/ Arousal (PLMA) 0 0.0 PLM 0 0 Events Asleep w/o Arousal (PLMS) 25 5.6 Snoring 0 0 Total Asleep 25 5.6 Total 9 2 Total 67 10 Respiratory Analysis * CA OA MA CH H RERA Total Count 0 0 0 0 5 0 5 Index 0.0 0.0 0.0 0 1.1 0 1.1 Mean Duration 0.0 0.0 0.0 0.00 20.1 0.0 20.1 Longest Duration 0.0 0.0 0.0 0.00 0.0 0.0 24.8 Respiratory Event Summary Total Supine ~Supine Right Left Prone REM NREM Apneas Count 0 N/A 0 N/A 0 N/A 0 0 Index 0.0 N/A 0 N/A 0.0 N/A 0 0 Hypopneas (4% Desat) Count 5 N/A 5 N/A 5 N/A 5 0 Index 1.1 N/A 1 N/A 1.1 N/A 4.7 0.0 Apneas & All Hypopneas Count 5 N/A 5 N/A 5 N/A 5 0 Index 1.1 N/A 1 N/A 1 N/A 4.7 0.0 Respiratory Events (Unishear Operator+All Hyp+RERA) Count 5 N/A 5 N/A 5 N/A 5 0 Index 1.1 N/A 1 N/A 1.1 N/A 4.7 0.0 Respiratory Related Arousal Count 0 N/A 0 N/A 0 N/A 0 0 Index 0.0 N/A 0 N/A 0 N/A 0 0 Snoring Analysis Supine Right Left Prone REM NREM Total Snore duration 0.8 min Snores count N/A N/A 37 N/A 4 33 37 Snore mean duration 1.2 Sec Snores index N/A N/A 8 N/A 3.7 9.9 8.4 TST with snoring (%) 0.3% Desaturation Event Summary: Minimum %SpO2 Event Count Mean/Min/Max Duration(sec.) Desaturation Index % Time In Bed > 90 8 33.8 / 14.0 / 47.3 1.8 68.5 86 - 90 2 42.0 / 31.9 / 52.0 1.0 31.4 81 - 85 0 N/A 0.0 0.1 76 - 80 0 N/A 0.0 0.1 71 - 75 0 N/A 0.0 0.0 66 - 70 0 N/A 0.0 0.0 61 - 65 0 N/A 0.0 0.0 56 - 60 0 N/A 0.0 0.0 51 - 55 0 N/A 0.0 0.0 < 50 0 N/A 0.0 0.0 Total REM NREM Awake <50% 0.0 min. 0.0 min. 0.0 min. 0.0 min. 51 - 60% 0.0 min. 0.0 min. 0.0 min. 0.0 min. 61 - 70% 0.0 min. 0.0 min. 0.0 min. 0.0 min. 71 - 80% 0.2 min. 0.0 min. 0.0 min. 0.2 min. 81 - 90% 124.3 min. 4.9 min. 100.3 min. 19.1 min. 91 - 100% 270.4 min. 59.6 min. 100.7 min. 110.1 min. Average 91 93 90 92 Minimum SpO2 80 85 88 80 Desaturation Event Index 1.5 4.7 0.0 2.1 # Desat. Events below 89% 2 2 N/A N/A Time(%) with Saturation below 89% 0.4 0.2 0.0 0.1 Time(min.) with Saturation below 89% 1.6 0.9 0.1 0.5 Time (mins) REM (mins) NREM (mins) % of TST SpO2 Below 90% 4 4 NN/A 10.8 SpO2 Below 88% 1 0 0 0 Heart Rate Analysis Min (bpm) Max (bpm) Average (bpm) Awake 59 127 70 NREM 55 69 62 REM 54 75 64 Overall 54 75 62 Supplemental O2 Values Minimum O2 level: None Value Start Time End Time Metalsmith Comments Mrs. Graves slept in the right, left and supine positions. No cardiac arrhythmia noted. Leg movements noted. No bruxism noted. Snoring was noted and scored as a 2 on a scale of 1 through 5. (0=no snoring, 5=snoring loud enough to be heard through a closed door or down the acosta way) Mrs. Graves awoke to use the restroom 1 time during the night. Mrs. Graves stated I slept as well as I do when I am in my own bed. The final report will be interpreted and signed by a sleep physician. The completed physician report will then be placed in the patient medical record. Therapy (cm H2O) 0 TIB (min.) 408.0 TST (min.) 265.5 Sleep Onset (min.) 45.0 REM Onset From Sleep (min.) 125.0 Sleep Efficiency % 65 Wakefulness (%) 35 Wakefulness (min.) 143.0 NREM 1 (%) 2 NREM 1 (min.) 4.0 NREM 2 (%) 15 NREM 2 (min.) 39.0 NREM 3 (%) 60 NREM 3 (min.) 158.0 REM (%) 24 REM (min.) 64.5 # Arousals 9 Arousal Index 2 # Snore 37 Snore Index 8.4 AHI 1.1 AHI Supine N/A AHI Non-Supine 1 NREM AHI 0.0 REM AHI 4.7 RDI 1.1 # Obstructive Apnea 0 # Central Apnea 0 # Mixed Apnea 0 # Hypopneas 5 RERAs 0 Total Respiratory Events 5 Time Below SpO2 89% (min.) 1.1 Mean NREM SpO2 (%) 90 Mean REM SpO2 (%) 93 Mean Sleep SpO2 (%) 91 Min NREM SpO2 (%) 88 Min REM SpO2 (%) 85 Position Supine (min.) 86.3 Position Non-supine (min.) 265.5 LM Index Sleep 5.6 LM Index NREM 0.6 LM Index REM 21.4 Mean Heart Rate (bpm) 62 Min Heart Rate (bpm) 54
--- NOTE | 2016-10-16 11:05 | POLYSOMNOGRAPH REPORT ---
CLINICAL DATA: A 45-year-old female with BMI of 32.[address] Chatterjee. She was told she had mild sleep apnea years ago after a sleep study. She was never on treatment. She has COPD, hypoventilation and excessive daytime sleepiness. Her Langley Sleepiness Scale score was elevated at 13/24. SLEEP ARCHITECTURE: Total recording time was 408.5 minutes. Total sleep period was 268.5 minutes. Total sleep time was 265.5 minutes divided between 201 minutes of non-REM sleep and 64.5 minutes of REM sleep. Sleep onset latency was delayed at 45 minutes. REM latency was 125 minutes. Sleep efficiency was reduced at 65%. Wake after sleep onset was 97.5 minutes. Sleep consisted of stage N1 2%, stage N2 15%, stage N3 60%, and REM 24%. AROUSAL DATA: Nine arousals were recorded for an index of 2 per hour. PLM DATA: Twenty-five limb movements during sleep were noted for an index of 5.6 per hour with no arousals. RESPIRATORY DATA: There was no evidence of clinically significant sleep apnea. The AHI was 1.1. There were 5 hypopneic episodes with mean duration of 20 seconds. OXIMETRY DATA: No significant hypoxemia was seen. Oxygen olga was 85%. Mean saturation was 91%. Time below 88% was 1 minute. EKG: Heart rates ranged from 55-75 beats per minute. No arrhythmias were noted. BUILDING ATTENDANT'S COMMENTS: The patient slept in the right, left, and supine positions. Snoring was mild, rated 2 on a scale of 1-5. IMPRESSION: No evidence of clinically significant sleep apnea/hypopnea, nocturnal hypoxemia or abnormal limb movements during sleep. RECOMMENDATIONS: The patient should continue to practice good sleep hygiene. [facility]ENTERJohnathan
== END | disposition home or self-care (01) ==
LOC: C.NEUR 20:00
PROVIDERS: ATTEND Internal Medicine Critical Care Medicine
DX: G47.33 Obstructive sleep apnea (adult) (pediatric) (principal)